=== PATIENT | male | born 1960 | race Two or more races ===

== ENCOUNTER 2023-03-01 13:56 | Emergency (ER) | payer MEDICAID, OTHER ==
[~2023-03-01] VITALS: Ht 180.3 cm; Wt 91.9 kg
[2023-03-01 14:10] VITALS: BP 125/90; PULSE 101; RESP 20; O2SAT 98
[2023-03-01] MEDS ORDERED: LORazepam 2MG/ML-1ML VIAL IV ONE (14:30)
[2023-03-01] MEDS ORDERED: SODIUM CHLORIDE 0.9% 1,000 ML IV ONE (14:30)
[2023-03-01 14:46] LABS: Basophils # (auto) 0.1 10 ^3/uL (0-0.2); Basophils % (auto) 1.1 % (0.0-2.0); Eosinophils # (auto) 0.3 10 ^3/uL (0-0.8); Hemoglobin 16.7 g/dL (13.5-17.5); Lymphocytes # (auto) 2.4 10 ^3/uL (0.4-5.4); Lymphocytes % (auto) 22.7 % (10.0-50.0); Mean Corpuscular Hemoglobin 31.6 pg (28.0-32.0); Mean Corpuscular Hgb Conc. 34.1 g/dL (32.0-36.0); Mean Corpuscular Volume 92.7 fL (80.0-100.0); Monocytes % (auto) 9.3 % (0.0-12.0); Neutrophils # (auto) 6.7 10 ^3/uL (1.6-8.6); Neutrophils % (auto) 63.9 % (37.0-80.0); Nucleated Red Blood Cells % 0.1 %; Red Blood Cells 5.29 10^6/uL (4.5-5.90); Red Cell Distribution Width 12.7 % (11.8-14.3); White Blood Cell 10.5 10^3/uL (4.4-10.8)
[2023-03-01 15:01] LABS: Alanine Aminotransferase 50 U/L (7-40); Albumin 4.1 g/dL (3.2-4.8); Alkaline Phosphatase 110 U/L (46-116); Anion Gap 8 (5-15); Aspartate Aminotransferase 40 U/L (13-40); BUN/Creatinine Ratio 13.1 (10.0-20.0); Bilirubin, Total 0.5 mg/dL (0.2-1.0); Blood Alcohol 4.7 mg/dL (<10); Blood Urea Nitrogen 13 mg/dL (9-23); Calcium 9.6 mg/dL (8.5-10.1); Carbon Dioxide 27 mmol/L (20-30); Chloride 103 mmol/L (98-107); Glucose 283 mg/dL (74-106); Potassium 4.2 mmol/L (3.5-5.1); Sodium 138 mmol/L (136-145); Total Protein 6.7 g/dL (5.7-8.2)
[2023-03-01 15:28] LABS: Amphetamine Screen, Urine Pos (NEGATIVE); Barbiturate Scree,Urine Neg (NEGATIVE); Benzodiazephine Screen, Urine Neg (NEGATIVE); Cannabinoid Screen, Urine Pos (NEGATIVE); Cocaine Screen, Urine Neg (NEGATIVE); Opiate Scree,Urine Neg (NEGATIVE); Phencyclidine Screen, Urine Neg (NEGATIVE)
[2023-03-01] MEDS ORDERED: diphenhdrAMINE HCL 50 MG/1 ML VL IV ONE (15:30)
[2023-03-02] MEDS ORDERED: BENA-36 PO (19:01)
[2023-03-02] MEDS ORDERED: ATOR20TA50 PO (19:01)
[2023-03-02] MEDS ORDERED: METF-869 PO (19:01)
[2023-03-02] MEDS ORDERED: NIFE1TAB30 PO (19:01)
== END 2023-03-01 22:46 | disposition home or self-care (01) ==
LOC: ER 13:56
DX: F15.10 Other stimulant abuse, uncomplicated (principal); R25.1 Tremor, unspecified; I10 Essential (primary) hypertension; E11.9 Type 2 diabetes mellitus without complications; J44.9 Chronic obstructive pulmonary disease, unspecified; F17.210 Nicotine dependence, cigarettes, uncomplicated; Z86.73 Personal history of transient ischemic attack (TIA), and cerebral infarction without residual deficits; Z98.890 Other specified postprocedural states; Z79.899 Other long term (current) drug therapy
CPT/HCPCS: 36415; 80053; 80307; 80320; 82962; 85025

== ENCOUNTER 2023-03-02 12:38 | Inpatient (IN) | payer MEDICAID ==
[~2023-03-02] VITALS: Ht 180.3 cm; Wt 93.6 kg
[2023-03-02] MEDS ORDERED: LORazepam 2MG/ML-1ML VIAL IV ONE (13:30)
[2023-03-02 14:17] LABS: Basophils # (auto) 0.1 10 ^3/uL (0-0.2); Basophils % (auto) 0.9 % (0.0-2.0); Eosinophils # (auto) 0.2 10 ^3/uL (0-0.8); Eosinophils % (auto) 1.7 % (0.0-7.0); Hemoglobin 16.5 g/dL (13.5-17.5); Lymphocytes # (auto) 2.5 10 ^3/uL (0.4-5.4); Lymphocytes % (auto) 20.9 % (10.0-50.0); Mean Corpuscular Hemoglobin 31.2 pg (28.0-32.0); Mean Corpuscular Hgb Conc. 33.6 g/dL (32.0-36.0); Mean Corpuscular Volume 92.9 fL (80.0-100.0); Monocytes # (auto) 1.2 10 ^3/uL (0-1.3); Monocytes % (auto) 9.7 % (0.0-12.0); Neutrophils # (auto) 8.1 10 ^3/uL (1.6-8.6); Neutrophils % (auto) 66.8 % (37.0-80.0); Nucleated Red Blood Cells % 0.1 %; Red Blood Cells 5.28 10^6/uL (4.5-5.90); Red Cell Distribution Width 12.9 % (11.8-14.3); White Blood Cell 12.2 10^3/uL (4.4-10.8)
[2023-03-02 14:24] LABS: Alanine Aminotransferase 50 U/L (7-40); Albumin 4.1 g/dL (3.2-4.8); Alkaline Phosphatase 94 U/L (46-116); Anion Gap 8 (5-15); Aspartate Aminotransferase 40 U/L (13-40); BUN/Creatinine Ratio 13.4 (10.0-20.0); Bilirubin, Total 0.9 mg/dL (0.2-1.0); Blood Urea Nitrogen 11 mg/dL (9-23); Calcium 9.8 mg/dL (8.5-10.1); Carbon Dioxide 25 mmol/L (20-30); Chloride 106 mmol/L (98-107); Sodium 139 mmol/L (136-145); Total Protein 6.8 g/dL (5.7-8.2)
[2023-03-02 14:32] VITALS: PULSE 91; RESP 15; O2SAT 92
[2023-03-02 14:32] LABS: Glucose 160 mg/dL (74-106)
[2023-03-02 15:19] LABS: INR 1.01 (0.9-1.15); Partial Thromboplastin Time 27.5 SEC (24.5-34.5); Prothrombin Time 10.6 sec (9.3-11.8)
[2023-03-02] MEDS ORDERED: ACETAMINOPHEN 325 MG TAB PO PRN (19:00)
[2023-03-02] MEDS ORDERED: cefTRIAXone 1GM/50ML D5W 50 ML IV ONE (19:00)
[2023-03-02] MEDS ORDERED: DEXTROSE (50%) 50ML SYRG IV PRN (19:00)
[2023-03-02] MEDS ORDERED: MORPHINE SULFATE INJ 2 MG/ml SYRG IV PRN (19:00)
[2023-03-02] MEDS ORDERED: DOCUSATE SOD 100 MG CAP PO PRN (19:00)
[2023-03-02] MEDS ORDERED: NITROGLYCERIN 0.4 MG SL TAB SL PRN (19:00)
[2023-03-02] MEDS ORDERED: ONDANSETRON HCL 4 MG/2 ML VIAL IV PRN (19:00)
[2023-03-02] MEDS ORDERED: ATOR20TA50 PO (19:01)
[2023-03-02] MEDS ORDERED: NIFE1TAB30 PO (19:01)
[2023-03-02] MEDS ORDERED: BENA-36 PO (19:01)
[2023-03-02] MEDS ORDERED: METF-869 PO (19:01)
[2023-03-02 20:06] LABS: Urine Bacteria NONE SEEN /hpf (None Seen); Urine Blood Negative /uL (Negative); Urine Clarity Clear (Clear); Urine Color Yellow (Yellow); Urine Mucus FEW (None Seen); Urine Protein, UAD TRACE (Negative); Urine WBC <1 /hpf (0 - 3)
[2023-03-02 20:08] VITALS: PULSE 98; RESP 18; O2SAT 98
[2023-03-02 20:09] LABS: Urine Specific Gravity > 1.050 (1.001-1.035)
[2023-03-02 20:22] LABS: Amphetamine Screen, Urine Pos (NEGATIVE); Barbiturate Scree,Urine Neg (NEGATIVE); Benzodiazephine Screen, Urine Neg (NEGATIVE); Cannabinoid Screen, Urine Neg (NEGATIVE); Cocaine Screen, Urine Neg (NEGATIVE); Opiate Scree,Urine Neg (NEGATIVE); Phencyclidine Screen, Urine Neg (NEGATIVE)
[2023-03-02] MEDS: InsuLIN REG 1unit/0.01ml Soln (100units/ml) SC SCH (22:05)
[2023-03-02] MEDS: ACCU-CHEK COMFORT CURVE STRIP VI SCH (22:07)
[2023-03-03] VITALS (7 sets, daily range): BP systolic 109–122; BP diastolic 72–95; PULSE 89–103; RESP 18–24; TEMP 97.6–98.1; O2SAT 93–98
[2023-03-03 06:17] LABS: Basophils # (auto) 0.1 10 ^3/uL (0-0.2); Eosinophils # (auto) 0.3 10 ^3/uL (0-0.8); Eosinophils % (auto) 2.9 % (0.0-7.0); Lymphocytes # (auto) 3.1 10 ^3/uL (0.4-5.4); Lymphocytes % (auto) 30.3 % (10.0-50.0); Mean Corpuscular Hemoglobin 31.8 pg (28.0-32.0); Neutrophils # (auto) 5.4 10 ^3/uL (1.6-8.6)
[2023-03-03 06:18] LABS: Basophils % (auto) 0.9 % (0.0-2.0); Hematocrit 54.1 % (41.0-53.0); Mean Corpuscular Hgb Conc. 33.2 g/dL (32.0-36.0); Mean Corpuscular Volume 95.8 fL (80.0-100.0); Monocytes # (auto) 1.3 10 ^3/uL (0-1.3); Monocytes % (auto) 12.7 % (0.0-12.0); Neutrophils % (auto) 53.2 % (37.0-80.0); Nucleated Red Blood Cells % 0.2 %; Red Blood Cells 5.65 10^6/uL (4.5-5.90); Red Cell Distribution Width 13.2 % (11.8-14.3); White Blood Cell 10.1 10^3/uL (4.4-10.8)
[2023-03-03 06:21] LABS: Alanine Aminotransferase 54 U/L (7-40); Alkaline Phosphatase 112 U/L (46-116); Anion Gap 11 (5-15); Blood Urea Nitrogen 10 mg/dL (9-23); Calcium 10.2 mg/dL (8.5-10.1); Carbon Dioxide 24 mmol/L (20-30); Chloride 104 mmol/L (98-107); Glucose 139 mg/dL (74-106); Sodium 139 mmol/L (136-145)
[2023-03-03 06:22] LABS: Albumin 4.5 g/dL (3.2-4.8); Aspartate Aminotransferase 40 U/L (13-40); Bilirubin, Total 0.9 mg/dL (0.2-1.0); Total Protein 7.4 g/dL (5.7-8.2)
[2023-03-03] MEDS: InsuLIN REG 1unit/0.01ml Soln (100units/ml) SC SCH ×4 (06:47→22:01)
[2023-03-03] MEDS: ACCU-CHEK COMFORT CURVE STRIP VI SCH ×4 (06:52→22:06)
[2023-03-03] MEDS: cefTRIAXone 1GM/50ML D5W 50 ML IV SCH (09:17)
[2023-03-03] MEDS: NIFEdipine ER 30 MG TAB PO SCH (10:37)
[2023-03-03] MEDS: ASPirin-EC 81 mg tab PO SCH (10:37)
[2023-03-03] MEDS: ENOXAPARIN SOD 40 MG/0.4 ML SYRINGE SC SCH (10:38)
[2023-03-03] MEDS: ATORVASTATIN 20 MG TAB PO SCH (10:38)
[2023-03-03] MEDS: BENAZEPRIL HCL 10 MG TAB PO SCH (10:38)
[2023-03-03] MEDS: LORazepam 2MG/ML-1ML VIAL IV PRN (12:25)
[2023-03-03] MEDS: chlordiazePOXIDE HCL 25 MG CAP PO SCH ×2 (16:02→21:49)
[2023-03-03] MEDS ORDERED: HALOPERIDOL LACTATE 5 MG/ML INJ VIAL IM ONE (16:30)
[2023-03-03] MEDS ORDERED: HALOPERIDOL LACTATE 5 MG/ML INJ VIAL IM PRN ×2 (16:45→20:30)
[2023-03-03] MEDS ORDERED: LORazepam 2MG/ML-1ML VIAL IV PRN (20:30)
[2023-03-03 21:05] LABS: LDL Cholesterol 66 mg/dL (< 100); Triglycerides 151 mg/dL (< 150)
[2023-03-03 21:07] LABS: Cholesterol 125 mg/dL (< 200); HDL Cholesterol 40 mg/dL (40-59)
[2023-03-03] MEDS: HALOPERIDOL 1 MG TAB PO SCH (21:49)
[2023-03-04] MEDS: chlordiazePOXIDE HCL 25 MG CAP PO SCH ×3 (04:53→21:06)
[2023-03-04] MEDS: ACCU-CHEK COMFORT CURVE STRIP VI SCH ×4 (06:35→21:13)
[2023-03-04] MEDS: InsuLIN REG 1unit/0.01ml Soln (100units/ml) SC SCH ×4 (06:38→21:17)
[2023-03-04] MEDS: ENOXAPARIN SOD 40 MG/0.4 ML SYRINGE SC SCH (09:56)
[2023-03-04] MEDS: ASPirin-EC 81 mg tab PO SCH (09:56)
[2023-03-04] MEDS: NIFEdipine ER 30 MG TAB PO SCH (09:57)
[2023-03-04] MEDS: ATORVASTATIN 20 MG TAB PO SCH (09:57)
[2023-03-04] MEDS: HALOPERIDOL 1 MG TAB PO SCH ×2 (09:57→21:06)
[2023-03-04] MEDS: BENAZEPRIL HCL 10 MG TAB PO SCH (09:58)
[2023-03-04] MEDS: cefTRIAXone 1GM/50ML D5W 50 ML IV SCH (10:04)
[2023-03-04] MEDS: FOLIC ACID 1 MG, MULTIPLE VITAMIN 10 ML, MAGNESIUM SULF SDV 50% 8 MEQ, THIAMINE INJ 100... INJ SCH ×5 (12:51)
[2023-03-04 20:00] VITALS: PULSE 85; RESP 16
[2023-03-04] MEDS: LORazepam 2MG/ML-1ML VIAL IV PRN (21:05)
[2023-03-05] VITALS (7 sets, daily range): BP systolic 102–122; BP diastolic 52–74; PULSE 77–90; RESP 17–97; TEMP 97.3–97.5; O2SAT 91–96
[2023-03-05] MEDS: ACCU-CHEK COMFORT CURVE STRIP VI SCH ×4 (06:24→22:17)
[2023-03-05] MEDS: InsuLIN REG 1unit/0.01ml Soln (100units/ml) SC SCH ×4 (06:37→22:19)
[2023-03-05] MEDS: ATORVASTATIN 20 MG TAB PO SCH (09:52)
[2023-03-05] MEDS: HALOPERIDOL 1 MG TAB PO SCH ×2 (09:52→22:14)
[2023-03-05] MEDS: ASPirin-EC 81 mg tab PO SCH (09:52)
[2023-03-05] MEDS: cefTRIAXone 1GM/50ML D5W 50 ML IV SCH (09:52)
[2023-03-05] MEDS: BENAZEPRIL HCL 10 MG TAB PO SCH (09:53)
[2023-03-05] MEDS: NIFEdipine ER 30 MG TAB PO SCH (09:53)
[2023-03-05] MEDS: ENOXAPARIN SOD 40 MG/0.4 ML SYRINGE SC SCH (09:54)
[2023-03-05] MEDS ORDERED: chlordiazePOXIDE HCL 25 MG CAP PO SCH (10:00)
[2023-03-05] MEDS: FOLIC ACID 1 MG, MULTIPLE VITAMIN 10 ML, MAGNESIUM SULF SDV 50% 8 MEQ, THIAMINE INJ 100... INJ SCH ×5 (15:18)
[2023-03-05] MEDS: LORazepam 2MG/ML-1ML VIAL IV PRN (15:18)
[2023-03-06] MEDS: LORazepam 2MG/ML-1ML VIAL IV PRN ×2 (00:48→07:20)
[2023-03-06 05:00] VITALS: BP 122/69; PULSE 79; RESP 18; TEMP 97.6; O2SAT 95
[2023-03-06] MEDS ORDERED: chlordiazePOXIDE HCL 25 MG CAP PO SCH ×2 (07:00→10:00)
[2023-03-06] MEDS: InsuLIN REG 1unit/0.01ml Soln (100units/ml) SC SCH (07:03)
[2023-03-06] MEDS: ACCU-CHEK COMFORT CURVE STRIP VI SCH (07:04)
[2023-03-06 08:00] VITALS: PULSE 87; PULSE 90; RESP 19; RESP 97; O2SAT 94
[2023-03-07] MEDS ORDERED: chlordiazePOXIDE HCL 25 MG CAP PO SCH (10:00)
[2023-03-08] MEDS ORDERED: chlordiazePOXIDE HCL 25 MG CAP PO SCH (07:00)
== END 2023-03-06 10:38 | disposition left against medical advice (07) | DRG 45 ==
LOC: ER 12:38 → TELE 18:59 → TELE-CENTR 03-03 07:52
PROVIDERS: ADMIT Nurse Practitioner Family; ATTEND Family Medicine
DX: I63.9 Cerebral infarction, unspecified (principal); G93.41 Metabolic encephalopathy; L03.114 Cellulitis of left upper limb; E11.9 Type 2 diabetes mellitus without complications; E78.5 Hyperlipidemia, unspecified; E78.00 Pure hypercholesterolemia, unspecified; F01.50 Vascular dementia, unspecified severity, without behavioral disturbance, psychotic disturbance, mood disturbance, and anxiety; I10 Essential (primary) hypertension; Z53.29 Procedure and treatment not carried out because of patient's decision for other reasons; F10.139 Alcohol abuse with withdrawal, unspecified; F17.200 Nicotine dependence, unspecified, uncomplicated; J43.9 Emphysema, unspecified; Z79.82 Long term (current) use of aspirin; Z79.899 Other long term (current) drug therapy; Z82.3 Family history of stroke; Z82.49 Family history of ischemic heart disease and other diseases of the circulatory system; Z71.6 Tobacco abuse counseling; Z71.41 Alcohol abuse counseling and surveillance of alcoholic
CPT/HCPCS: 36415; 70450; 70496; 70551; 71045; 76881; 80053; 80061; 80307; 80320; 81001; 82962; 83735; 83880; 84484; 85025; 85610; 85730; 87040; 93306; 93886; 97163; G0378; J0696; J1815

== ENCOUNTER 2024-11-03 21:29 | Emergency (ER) | payer MEDICAID ==
[~2024-11-03] VITALS: Ht 172.7 cm; Wt 82.0 kg
[~2024-11-03 21:29] MED LIST: ATOR20TA50 PO; BENA-36 PO; METF-869 PO; NIFE1TAB30 PO
[2024-11-03 21:40] VITALS: BP 119/86; RESP 16; TEMP 98; O2SAT 99
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
[2024-11-03 22:09] VITALS: PULSE 125
[2024-11-03 23:13] LABS: Alanine Aminotransferase 23 U/L (7-40); Albumin 4.7 g/dL (3.2-4.8); Alkaline Phosphatase 77 U/L (46-116); Anion Gap 12 (5-15); BUN/Creatinine Ratio 13.0 (10.0-20.0); Blood Urea Nitrogen 12 mg/dL (9-23); Carbon Dioxide 21 mmol/L (20-31); Potassium 4.2 mmol/L (3.5-5.1); Sodium 144 mmol/L (136-145); Total Protein 7.5 g/dL (5.7-8.2)
[2024-11-03 23:14] LABS: Bilirubin, Total 0.5 mg/dL (0.2-1.0); Chloride 111 mmol/L (98-107); Glucose 126 mg/dL (74-106)
[2024-11-03 23:18] LABS: Hematocrit 55.7 % (41.0-53.0); Hemoglobin 19.2 g/dL (13.5-17.5); Mean Corpuscular Hemoglobin 33.0 pg (28.0-32.0); Mean Corpuscular Volume 95.9 fL (80.0-100.0); Nucleated Red Blood Cells % 0.1 %
[2024-11-03 23:39] LABS: Calcium 10.1 mg/dL (8.7-10.4)
--- NOTE | 2024-11-08 12:43 | ECG ---
[facility] Test Date: 2024-11-03 Test Time: 22:09:00 Pat Name: JANIE BOLANOS Department: ER Room: Gender: M Fuel Quality Tech: : 1960 Requested By: LISSET KUMAR Order Number: [id number] Reading MD: Julio C Boyd Measurements Intervals [place] Rate: 125 P: 86 MI: 117 QRS: 84 QRSD: 83 T: -43 QT: 302 QTc: 436 Interpretive Statements Sinus tachycardia Nonspecific repol abnormality, diffuse leads Electronically Signed On 11-13-2024 17:10:19 PDT by Julio C Boyd Please click the below link to view image of tracing.
== END 2024-11-04 01:50 | disposition left against medical advice (07) ==
LOC: EDBD 21:29 → ER 21:29
DX: S40.812A Abrasion of left upper arm, initial encounter (principal); S40.811A Abrasion of right upper arm, initial encounter; S40.212A Abrasion of left shoulder, initial encounter; S40.211A Abrasion of right shoulder, initial encounter; G93.40 Encephalopathy, unspecified; I10 Essential (primary) hypertension; E11.9 Type 2 diabetes mellitus without complications; E78.5 Hyperlipidemia, unspecified; F03.90 Unspecified dementia, unspecified severity, without behavioral disturbance, psychotic disturbance, mood disturbance, and anxiety; F17.210 Nicotine dependence, cigarettes, uncomplicated; J44.9 Chronic obstructive pulmonary disease, unspecified; Z79.899 Other long term (current) drug therapy; Z86.73 Personal history of transient ischemic attack (TIA), and cerebral infarction without residual deficits; Z98.890 Other specified postprocedural states; V89.2XXA Person injured in unspecified motor-vehicle accident, traffic, initial encounter; Y93.55 Activity, bike riding; Y92.488 Other paved roadways as the place of occurrence of the external cause; Y99.8 Other external cause status
CPT/HCPCS: 36415; 80053; 80320; 82947; 82962; 83880; 84484; 85025; 93005

== ENCOUNTER 2024-11-16 18:59 | Inpatient (IN) | payer MEDICAID ==
[~2024-11-16] VITALS: Ht 175.3 cm; Wt 93.8 kg
--- NOTE | 2024-11-16 19:33 | ED.PDOC ---
Altered Mental Status HPI Comments 64-year-old male who came to ER via EMS for altered level of consciousness. Patient is a very poor historian. Unable to understand with the he is saying, constantly mumbling. Was here 2 weeks ago, and records revealed he has a history of CVA, HTN, Hyperlipidemia, organic brain syndrome, Dementia, DM, and Methamphetamine/Tobacco/Alcohol Abuse. Patient does smell of alcohol at this time. No further information could be taken from him at this time of care REVIEW OF SYSTEMS: (+) Patient ALOC No fever, no chills, or fatigue HEENT: No sore throat, no earache, no congestion, no neck pain. Cardiac: No chest pain. No palpitations. Lungs: No shortness of breath, no cough. GI: No nausea, no vomiting, no diarrhea, no constipation, no abdominal pain : No dysuria, frequency, or urgency. No hematuria. Musculoskeletal: No joint pain , no joint swelling, no extremity edema. Skin: No rash, no itching. Neuro: No headache, no dizziness, no weakness Physical exam General: Awake, alert and oriented. No acute distress. Skin: Skin in warm, dry and intact. Appropriate color for ethnicity. Nailbeds pink with no cyanosis. HEENT: The head is normocephalic and atraumatic. Conjunctivae are clear without exudates or hemorrhage. Sclera is non-icteric. EOM are intact. No signs of nystagmus. Eyelids are normal in appearance without swelling or lesions. Oral mucosa is pink and moist Neck: The neck is supple with normal range of motion. No JVD. Cardiac: Heart rate and rhythm are normal. No murmurs, gallops, or rubs are auscultated. Respiratory: No signs of respiratory distress. Lung sounds are clear in all lobes bilaterally without rales, rhonchi, or wheezes. Abdominal: Abdomen is soft, non-tender without distention. Bowel sounds are present and normoactive in all four quadrants. Extremities: Upper and lower extremities are atraumatic in appearance without deformity or edema. Neurological: The patient is awake, alert and oriented to person, place, and time with normal speech. Speech is clear. There is no facial asymmetry. No upper or lower extremity drift. Psychiatric: Appropriate mood and affect. Good judgement and insight. No visual or auditory hallucinations. Chief Complaint: ALOC Time Seen by MD: 19:31 Primary Care Provider: Unknown Reviewed Notes: Robotic Maintenance Technician Notes Allergies: Coded Allergies: NO KNOWN ALLERGIES (Unverified , 09/19/10) Home Meds Reported Medications Metformin Hydrochloride (Metformin Hydrochloride) 500 Mg Tab, 1 TAB PO BID 03/02/23 Atorvastatin Calcium (ATORVASTATIN CALCIUM) 20 Mg Tab, 1 TAB PO DAILY 03/02/23 Benazepril Hcl (Benazepril Hcl) 20 Mg Tab, 1 TAB PO DAILY 03/02/23 Nifedipine (Nifedipine Er) 60 Mg Tab, 1 TAB PO DAILY 03/02/23 Information Source: Patient, Emergency Med Personnel Mode of Arrival: EMS Severity: Unable to Care for Self Past Medical History PAST MEDICAL HISTORY: COPD, CVA, Dementia, DM, HTN Past Medical History (Other): Organic brain syndrome Surgical History: Pt Confused Family History Family History: Pt Confused Social History Smoker: Pt Confused Alcohol: Heavy Drugs: Methamphetamine Lives In: Pt Confused EKG EKG : Pulse Rate (adult): 100 Cardiac Rhythm: ST Was a procedure done? Was a procedure done?: No Differential Diagnosis (ALOC) Differential Diagnosis: Dehydration, Hypoglycemia, Encephalopathy, Sepsis, Drug Overdose, ETOH Intoxication X-Ray, Labs, Meds, VS Vital Signs Date Time Temp Pulse Resp B/P (MAP) Pulse Ox O2 Delivery O2 Flow Rate FiO2 11/17/24 00:00 85 11/17/24 00:00 81 20 102/73 (83) 96 11/16/24 22:00 81 24 116/75 (89) 95 11/16/24 20:00 91 11/16/24 20:00 91 13 116/84 (95) 95 11/16/24 19:33 100 11/16/24 19:25 Room Air* 0 21 11/16/24 19:24 97.7 99 18 120/89 (99) 94 97.7 11/16/24 19:08 97.8 92 16 133/92 97 97.8 11/16/24 19:08 100 Lab Test 11/16/24 19:45 11/16/24 19:00 Range/Units White Blood Count 8.8 4.4-10.8 10^3/uL Red Blood Count 5.37 4.5-5.90 10^6/uL Hemoglobin 17.8 H 13.5-17.5 g/dL Hematocrit 51.5 41.0-53.0 % Mean Corpuscular Volume 96.0 80.0-100.0 fL Mean Corpuscular Hemoglobin 33.1 H 28.0-32.0 pg Mean Corpuscular Hemoglobin Concent 34.5 32.0-36.0 g/dL Red Cell Distribution Width 14.2 11.8-14.3 % Platelet Count 254 140-450 10^3/uL Mean Platelet Volume 7.5 6.9-10.8 fL Neutrophils (%) (Auto) 57.5 37.0-80.0 % Lymphocytes (%) (Auto) 28.7 10.0-50.0 % Monocytes (%) (Auto) 10.4 0.0-12.0 % Eosinophils (%) (Auto) 2.8 0.0-7.0 % Basophils (%) (Auto) 0.6 0.0-2.0 % Neutrophils # (Auto) 5.0 1.6-8.6 10 ^3/uL Lymphocytes # (Auto) 2.5 0.4-5.4 10 ^3/uL Monocytes # (Auto) 0.9 0-1.3 10 ^3/uL Eosinophils # (Auto) 0.2 0-0.8 10 ^3/uL Basophils # (Auto) 0.1 0-0.2 10 ^3/uL Nucleated Red Blood Cells 0.2 % Sodium Level 141 136-145 mmol/L Potassium Level 4.2 3.5-5.1 mmol/L Chloride Level 108 H 98-107 mmol/L Carbon Dioxide Level 22 20-31 mmol/L Anion Gap 11 5-15 Blood Urea Nitrogen 10 9-23 mg/dL Creatinine 0.85 0.700-1.30 mg/dL Glomerular Filtration Rate Calc 98 >90 mL/min BUN/Creatinine Ratio 11.8 10.0-20.0 Serum Glucose 108 H 74-106 mg/dL Calcium Level 9.0 8.7-10.4 mg/dL Total Bilirubin 0.6 0.2-1.0 mg/dL Aspartate Amino Transferase (AST) 27 13-40 U/L Alanine Aminotransferase (ALT) 23 7-40 U/L Alkaline Phosphatase 75 46-116 U/L Troponin I High Sensitivity < 3 L </=54 ng/L Total Protein 6.7 5.7-8.2 g/dL Albumin 4.2 3.2-4.8 g/dL Plasma/Serum Blood Alcohol < 3.0 <10 mg/dL Urine Color Yellow Yellow Urine Clarity Clear Clear Urine pH 5.0 5.0-9.0 Urine Specific Brooks 1.043 H 1.001-1.035 Urine Protein Negative Negative Urine Ketones Trace Negative Urine Blood Negative Negative /uL Urine Nitrite Negative Negative Urine Bilirubin Negative Negative Urine Urobilinogen Normal Negative mg/dL Urine Leukocyte Esterase Negative Negative /uL Urine RBC 1 0 - 3 /hpf Urine Microscopic WBC < 1 0-3 /HPF Urine Squamous Epithelial Cells Few <5 /hpf Urine Bacteria None seen None Seen /hpf Urine Mucus Few None Seen Urine Glucose 4+ H Normal mg/dL Urine Opiates Screen Neg NEGATIVE Urine Fentanyl Screen Neg NEGATIVE Urine Barbiturates Screen Neg NEGATIVE Urine Phencyclidine Screen Neg NEGATIVE Urine Amphetamines Screen Neg NEGATIVE Urine Benzodiazepines Screen Neg NEGATIVE Urine Cocaine Screen Pos NEGATIVE Urine Cannabinoids Screen Neg NEGATIVE Current Medications Medications (Trade) Dose Ordered Sig/Markel Route Start Time Stop Time Status Last Admin Sodium Chloride 1,000 ml @ 1,000 mls/hr Q1H ONCE IV 11/16/24 19:30 11/16/24 20:29 DC 11/16/24 19:36 EXAM: CT HEAD WITHOUT CONTRAST INDICATION: Altered mental status TECHNIQUE: CT of the head without intravenous contrast. Radiation Dose Information: CT Dose: CTDI volume is 61.53 mGy. Dose-length product is 1212.49 mGy*cm The dose indicators for CT are the volume Computed Tomography (CT) Dose Index (CTDIvol) and the Dose Length Product (DLP), and are measured in units of mGy an d mGy-cm, respectively. These indicators are not patient dose, but values generated from the CT scanner acquisition factors. The report includes radiation exposure data for exposures received during this examination. COMPARISON: MRI BRAIN HEAD WO CONTRAST on DOS: 03/04/23, CT STROKE CTH on DOS: 03/02/23, CT ANGIO HEAD/NECK on DOS: 03/02/23 FINDINGS: There is no evidence of acute intracranial hemorrhage, extra-axial collection, mass effect, midline shift, herniation or hydrocephalus. Acute infarct in the right thalamus posterior limb of the internal capsule. The ventricles, sulci and cisterns are age appropriate. The eid-white differentiation is intact. Patchy periventricular and subcortical white matter hypoattenuation is nonspecific but may be related to small vessel ischemic disease. The visualized paranasal sinuses and mastoid air cells are clear. The surrounding soft tissues and osseous structures are unremarkable. IMPRESSION: 1. Per MRI of 03/04/2023 possible infarct right posterior limb of the internal capsule in the thalamus. 2. No acute intracranial hemorrhage. HS:Y Time of 1ST Reevaluation: 19:33 Reevaluation 1ST: Unchanged Patient Education/Counseling: Need For Follow Up Family Education/Counseling: No Family Present SEPSIS Sepsis Screen Date sepsis recognized/suspect: Nov 16, 2024 Time Sepsis recognized/suspect: 1911 Recent Procedure: No On Antibiotic Therapy: No Respiratory Rate >20: No Heart Rate >90: Yes Temp<36 C (96.8 F) or >38.3 C: No SBP <90 or MAP <65 mmHG: No New Acute Mental Status Change: No Is the patient on CPAP, BIPAP,: No Physician Orders Straight Cath. (11/16/24 ) Head Without Contrast (11/16/24 21:49) Stroke Assessment (11/16/24 23:46) Vital Signs .PER UNIT PROTOCOL (11/16/24 23:46) Public Policy Mediator (11/16/24 23:46) Accurate Weight In Kg (11/16/24 23:46) Accucheck (11/16/24 23:46) * Neurology Consult (11/16/24 23:46) Nursing Dysphagia Screen (11/16/24 23:46) Neuro Checks Per Unit Protocol (11/16/24 23:46) Vital Signs Date Time Temp Pulse Resp B/P (MAP) Pulse Ox O2 Delivery O2 Flow Rate FiO2 11/17/24 00:00 85 11/17/24 00:00 81 20 102/73 (83) 96 11/16/24 22:00 81 24 116/75 (89) 95 11/16/24 20:00 91 11/16/24 20:00 91 13 116/84 (95) 95 11/16/24 19:33 100 11/16/24 19:25 Room Air* 0 21 11/16/24 19:24 97.7 99 18 120/89 (99) 94 97.7 11/16/24 19:08 97.8 92 16 133/92 97 97.8 11/16/24 19:08 100 Laboratory Tests Test 11/16/24 19:45 White Blood Count 8.8 10^3/uL (4.4-10.8) Medications Medications Dose Ordered Sig/Markel Route Start Time Stop Time Status Last Admin Dose Admin Sodium Chloride 1,000 ml @ 1,000 mls/hr Q1H ONCE IV 11/16/24 19:30 11/16/24 20:29 DC 11/16/24 19:36 Departure 1 Departure Time of Disposition: 23:46 Impression: Primary Impression: CVA (cerebral vascular accident) Disposition: ADMITTED INPATIENT Condition: Stable Comments [age] male who presented to the emergency department with altered mental status CT head showed acute thalamic infarct Patient admitted to hospitalist service for further treatment, evaluation and monitoring. Critical Care Note Critical Care Time?: No Stability Stability form required: No Heart Score Heart Score: Heart Score Response (Comments) Value History N/A 0 EKG N/A 0 Age N/A 0 Risk Factors N/A 0 Troponin N/A 0 Total 0 I personally scribed for SHAWNEE DUFFY MD ([email or web address]) on 11/16/24 at 19:33. Electronically submitted by Jhony Guerrero ([email or web address]). I personally scribed for SHAWNEE DUFFY MD ([email or web address]) on 11/16/24 at 22:54. Electronically submitted by Jhony Guerrero ([employer]). SHAWNEE DUFFY MD Nov 16, 2024 19:33
[2024-11-16] MEDS: SODIUM CHLORIDE 0.9% 1,000 ML IV ONE (19:36)
--- NOTE | 2024-11-16 20:09 | ECG ---
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
[2024-11-16 20:11] LABS: Hematocrit 51.5 % (41.0-53.0); Hemoglobin 17.8 g/dL (13.5-17.5); Mean Corpuscular Hemoglobin 33.1 pg (28.0-32.0); Mean Corpuscular Volume 96.0 fL (80.0-100.0); Nucleated Red Blood Cells % 0.2 %
[2024-11-16 20:20] LABS: Alanine Aminotransferase 23 U/L (7-40); Albumin 4.2 g/dL (3.2-4.8); Alkaline Phosphatase 75 U/L (46-116); Anion Gap 11 (5-15); BUN/Creatinine Ratio 11.8 (10.0-20.0); Bilirubin, Total 0.6 mg/dL (0.2-1.0); Blood Urea Nitrogen 10 mg/dL (9-23); Calcium 9.0 mg/dL (8.7-10.4); Carbon Dioxide 22 mmol/L (20-31); Chloride 108 mmol/L (98-107); Glucose 108 mg/dL (74-106); Potassium 4.2 mmol/L (3.5-5.1); Sodium 141 mmol/L (136-145); Total Protein 6.7 g/dL (5.7-8.2)
[2024-11-16 20:52] LABS: Amphetamine Screen, Urine Neg (NEGATIVE)
[2024-11-16 21:19] LABS: Barbiturate Scree,Urine Neg (NEGATIVE); Benzodiazephine Screen, Urine Neg (NEGATIVE); Cannabinoid Screen, Urine Neg (NEGATIVE); Cocaine Screen, Urine Pos (NEGATIVE); Opiate Scree,Urine Neg (NEGATIVE); Phencyclidine Screen, Urine Neg (NEGATIVE)
[2024-11-16 21:21] LABS: Urine Protein, UAD Negative (Negative)
--- NOTE | 2024-11-16 22:32 | DVH ---
EXAM: CT HEAD WITHOUT CONTRAST INDICATION: Altered mental status TECHNIQUE: CT of the head without intravenous contrast. Radiation Dose Information: CT Dose: CTDI volume is 61.53 mGy. Dose-length product is 1212.49 mGy*cm The dose indicators for CT are the volume Computed Tomography (CT) Dose Index (CTDIvol) and the Dose Length Product (DLP), and are measured in units of mGy and mGy-cm, respectively. These indicators are not patient dose, but values generated from the CT scanner acquisition factors. The report includes radiation exposure data for exposures received during this examination. COMPARISON: MRI BRAIN HEAD WO CONTRAST on DOS: 03/04/23, CT STROKE CTH on DOS: 03/02/23, CT ANGIO HEA D/NECK on DOS: 03/02/23 FINDINGS: There is no evidence of acute intracranial hemorrhage, extra-axial collection, mass effect, midline s hift, herniation or hydrocephalus. Acute infarct in the right thalamus posterior limb of the internal capsule. The ventricles, sulci and cisterns are age appropriate. The eid-white differentiation is intact. Patchy periventricular and subcortical white matter hypoattenuation is nonspecific but may be related to small vessel ischemic disease. The visualized paranasal sinuses and mastoid air cells are clear. The surrounding soft tissues and osseous structures are unremarkable. IMPRESSION: 1. Per MRI of 03/04/2023 possible infarct right posterior limb of the internal capsule in the thalamu s. 2. No acute intracranial hemorrhage. HS:Y
[2024-11-17] VITALS (11 sets, daily range): BP systolic 105–129; BP diastolic 52–99; PULSE 61–72; RESP 12–22; TEMP 97.6–98.1; O2SAT 94–98
[2024-11-17] MEDS: ACCU-CHEK COMFORT CURVE STRIP VI ONE (02:00)
--- NOTE | 2024-11-17 02:22 | DVHHPRES ---
History of Present Illness Resident Creating Document: ELTON LI RESIDENT History of Present Illness Goldy Parkinson JR is a 64-year-old male with past medical history of hypertension, hyperlipidemia, dementia, DM type 2, multiple drug abuse and, history of CVA in 2022. The patient was brought to the ER via EMS due to history of 1 day of altered level of consciousness. The patient has history of multiple "strokes" that left Cognitive sequels. Today, family member noticed him more confused than his baseline and decided to call the ambulance. The patient is a very poor historian, with partial slow responses when questioned. The patient reports headache, generalized weakness and myalgias. Denies fever, chills, abdominal pain, chest pain, or other symptoms. The patient was in COUNTS INCLUDE 234 BEDS AT THE [facility] 2 weeks ago due to similar presentation. On initial evaluation UDS is positive for cocaine, head CT scan showed; No acute intracranial hemorrhage. The patient will be admitted for further management. 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 ) Past Surgical History: None Past Surgical History Patient confused. Family History Patient confused. Smoke: <1 pack per day Occupation: Patient confused. ALCOHOL: occassional Drugs: Cocaine, Marijuana, Other (Methamphetamines.) Lives: with Family Review of Systems Constitutional: No: Fever, Chills, Sweats, Weakness, Malaise, Other Eyes: No: Pain, Vision change, Conjunctivae inflammation, Eyelid inflammation, Other, Redness ENT: No: Ear pain, Ear discharge, Nose pain, Nose discharge, Nose congestion, Mouth pain, Mouth swelling, Throat pain, Throat swelling, Other Respiratory: No: Cough, Dry, Shortness of breath, SOB with excertion, Wheezing, Hemoptysis, Pleuritic Pain, Sputum, Wheezing, Other Cardiovascular: No: Chest Pain, Palpitations, Orthopnea, Paroxysmal Noc. Dyspnea, Edema, Lt Headedness, Other Gastrointestinal: No: Nausea, Vomiting, Abdominal Pain, Diarrhea, Constipation, Melena, Hematochezia, Other Genitourinary: No Dysuria, No Frequency, No Incontinence, No Hematuria, No Retention, No Other Musculoskeletal: No: other, neck pain, shoulder pain, arm pain, back pain, hand pain, leg pain, foot pain Skin: No: Rash, Lesions, Jaundice, Bruising, Other Neurological: Confusion, Other (Headaches. ); No: Weakness, Numbness, Incoordination, Change in speech, Seizures Allergies: Coded Allergies: NO KNOWN ALLERGIES (Unverified , 09/19/10) Medications Current Medications Medications Dose Ordered Sig/Markel Route Start Time Stop Time Status Last Admin Dose Admin Pantoprazole Sodium 40 mg DAILY PO 11/17/24 10:00 UNV Exam Vital Signs Vital Signs Date Time Temp Pulse Resp B/P (MAP) Pulse Ox O2 Delivery O2 Flow Rate FiO2 11/17/24 02:00 78 19 103/65 (78) 94 11/16/24 19:25 Room Air* 0 21 11/16/24 19:24 97.7 97.7 General Appearance: Alert, Cooperative HEENT: Atraumatic, PERRLA, Mucous membr. moist/pink Respiratory: Clear to auscultation, Normal air movement Cardiovascular: Regular rate, Normal S1, Normal S2, No murmurs Abdominal: Normal bowel sounds, Soft, No tenderness, No hepatospenomegaly Extremities: No clubbing, No cyanosis, No edema, Normal pulses, No tenderness/swelling Skin: No rashes, No breakdown, No significant lesion Neuro: Normal gait, Normal speech, Strength at 5/5 X4 ext, Normal tone, Sensation intact, Cranial nerves 3-12 NL, Reflexes 2+ Psych/Mental Status: Other (Confused in place and time. ) Labs/Xrays Labs Test 11/16/24 19:45 11/16/24 19:00 Range/Units White Blood Count 8.8 4.4-10.8 10^3/uL Red Blood Count 5.37 4.5-5.90 10^6/uL Hemoglobin 17.8 H 13.5-17.5 g/dL Hematocrit 51.5 41.0-53.0 % Mean Corpuscular Volume 96.0 80.0-100.0 fL Mean Corpuscular Hemoglobin 33.1 H 28.0-32.0 pg Mean Corpuscular Hemoglobin Concent 34.5 32.0-36.0 g/dL Red Cell Distribution Width 14.2 11.8-14.3 % Platelet Count 254 140-450 10^3/uL Mean Platelet Volume 7.5 6.9-10.8 fL Neutrophils (%) (Auto) 57.5 37.0-80.0 % Lymphocytes (%) (Auto) 28.7 10.0-50.0 % Monocytes (%) (Auto) 10.4 0.0-12.0 % Eosinophils (%) (Auto) 2.8 0.0-7.0 % Basophils (%) (Auto) 0.6 0.0-2.0 % Neutrophils # (Auto) 5.0 1.6-8.6 10 ^3/uL Lymphocytes # (Auto) 2.5 0.4-5.4 10 ^3/uL Monocytes # (Auto) 0.9 0-1.3 10 ^3/uL Eosinophils # (Auto) 0.2 0-0.8 10 ^3/uL Basophils # (Auto) 0.1 0-0.2 10 ^3/uL Nucleated Red Blood Cells 0.2 % Sodium Level 141 136-145 mmol/L Potassium Level 4.2 3.5-5.1 mmol/L Chloride Level 108 H 98-107 mmol/L Carbon Dioxide Level 22 20-31 mmol/L Anion Gap 11 5-15 Blood Urea Nitrogen 10 9-23 mg/dL Creatinine 0.85 0.700-1.30 mg/dL Glomerular Filtration Rate Calc 98 >90 mL/min BUN/Creatinine Ratio 11.8 10.0-20.0 Serum Glucose 108 H 74-106 mg/dL Calcium Level 9.0 8.7-10.4 mg/dL Total Bilirubin 0.6 0.2-1.0 mg/dL Aspartate Amino Transferase (AST) 27 13-40 U/L Alanine Aminotransferase (ALT) 23 7-40 U/L Alkaline Phosphatase 75 46-116 U/L Troponin I High Sensitivity < 3 L </=54 ng/L Total Protein 6.7 5.7-8.2 g/dL Albumin 4.2 3.2-4.8 g/dL Plasma/Serum Blood Alcohol < 3.0 <10 mg/dL Urine Color Yellow Yellow Urine Clarity Clear Clear Urine pH 5.0 5.0-9.0 Urine Specific [place] 1.043 H 1.001-1.035 Urine Protein Negative Negative Urine Ketones Trace Negative Urine Blood Negative Negative /uL Urine Nitrite Negative Negative Urine Bilirubin Negative Negative Urine Urobilinogen Normal Negative mg/dL Urine Leukocyte Esterase Negative Negative /uL Urine RBC 1 0 - 3 /hpf Urine Microscopic WBC < 1 0-3 /HPF Urine Squamous Epithelial Cells Few <5 /hpf Urine Bacteria None seen None Seen /hpf Urine Mucus Few None Seen Urine Glucose 4+ H Normal mg/dL Urine Opiates Screen Neg NEGATIVE Urine Fentanyl Screen Neg NEGATIVE Urine Barbiturates Screen Neg NEGATIVE Urine Phencyclidine Screen Neg NEGATIVE Urine Amphetamines Screen Neg NEGATIVE Urine Benzodiazepines Screen Neg NEGATIVE Urine Cocaine Screen Pos NEGATIVE Urine Cannabinoids Screen Neg NEGATIVE SEPSIS Sepsis Screen Date sepsis recognized/suspect: Nov 17, 2024 Time Sepsis recognized/suspect: 0019 Recent Procedure: No On Antibiotic Therapy: No Respiratory Rate >20: No Heart Rate >90: No Temp<36 C (96.8 F) or >38.3 C: No SBP <90 or MAP <65 mmHG: No New Acute Mental Status Change: No Is the patient on CPAP, BIPAP,: No Physician Orders Straight Cath. (11/16/24 ) Head Without Contrast (11/16/24 21:49) Stroke Assessment (11/16/24 23:46) Vital Signs .PER UNIT PROTOCOL (11/16/24 23:46) Second Language Tutor (11/16/24 23:46) Accurate Weight In Kg (11/16/24 23:46) Accucheck (11/16/24 23:46) * Neurology Consult (11/16/24 23:46) Nursing Dysphagia Screen (11/16/24 23:46) Neuro Checks Per Unit Protocol (11/16/24 23:46) Admit (11/17/24 01:56) Code Status (11/17/24 01:56) Review Orders With Adm.Md (11/17/24 01:56) Bedside Commode (11/17/24 01:56) Notify Md Of Changes From Base (11/17/24 01:56) Advance Directive (11/17/24 01:56) Basic Metabolic Panel (11/17/24 04:00) Complete Blood Count (11/17/24 04:00) Patient Condition (11/17/24 01:56) Allergies (11/17/24 01:56) Drug Screen (11/17/24 01:56) Power Regulator For 24 Hours (11/17/24 01:56) Notify Md Of Changes From Base (11/17/24 01:56) Pantoprazole Tablet (Protonix Tablet) (11/17/24 10:00) Ammonia (11/17/24 01:56) Sodium Chloride 0.9% (11/17/24 02:00) Glucose Blood (Accu-Chek Comfort Curve T (11/17/24 02:00) Insulin R (Human) (Insulin R) (11/17/24 02:00) Dextrose 50% Syringe (11/17/24 02:00) Vital Signs Date Time Temp Pulse Resp B/P (MAP) Pulse Ox O2 Delivery O2 Flow Rate FiO2 11/17/24 02:00 78 19 103/65 (78) 94 11/17/24 00:00 85 11/17/24 00:00 81 20 102/73 (83) 96 11/16/24 22:00 81 24 116/75 (89) 95 11/16/24 20:00 91 11/16/24 20:00 91 13 116/84 (95) 95 11/16/24 19:33 100 11/16/24 19:25 Room Air* 0 21 11/16/24 19:24 97.7 99 18 120/89 (99) 94 97.7 11/16/24 19:08 97.8 92 16 133/92 97 97.8 11/16/24 19:08 100 Laboratory Tests Test 11/16/24 19:45 White Blood Count 8.8 10^3/uL (4.4-10.8) Medications Medications Dose Ordered Sig/Markel Route Start Time Stop Time Status Last Admin Dose Admin Sodium Chloride 1,000 ml @ 1,000 mls/hr Q1H ONCE IV 11/16/24 19:30 11/16/24 20:29 DC 11/16/24 19:36 1,000 MLS/HR Assessment/Plan Assessment/Plan #Toxic encephalopathy #Rule out CVA #Hx previous lacunar stroke IV fluids NS Head CT scan non contrast UDS UA Ammonia levels #Essential Hypertension Benazepril 20 mg po daily Nifedipine 60 mg po daily #Diabetes Mellitus type 2 with hyperglycemia Hb A1c Insulin Sliding scale #Hyperlipidemia Atorvastatin 40 mg po daily #Dementia, R/O vascular dementia Neurology consult Diabetic diet DVT prophylaxis- ambulating. PUD prophylaxis Protonic. Goals of care discussed with the patient > 35 min. Discussed plan of care with Dr. Villegas Code status: Full code PCP:patient does not recall name. Plan discussed with: Patient, the patient agrees with the admission plan. Plan discussed with: Patient My Orders Orders - ELTON LI Procedure Category Date Status Time Admit ADMIT 11/17/24 Transmitted 01:56 Code Status CODE 11/17/24 Transmitted 01:56 Review Orders With [facility] 11/17/24 In Process Adm. 01:56 Bedside Commode [facility] 11/17/24 In Process 01:56 Notify Md Of Changes [facility] 11/17/24 In Process From Base 01:56 Advance Directive [facility] 11/17/24 In Process 01:56 Basic Metabolic Panel LAB 11/17/24 Logged 04:00 Complete Blood Count LAB 11/17/24 Logged 04:00 Patient Condition ORDERS 11/17/24 Transmitted 01:56 Allergies [facility] 11/17/24 In Process 01:56 Drug Screen LAB 11/17/24 Logged 01:56 Power Regulator For [facility] 11/17/24 In Process 24 Hours 01:56 Notify Md Of Changes [facility] 11/17/24 In Process From Base 01:56 Pantoprazole Tablet PHA 11/17/24 Logged (Protonix Tablet) 10:00 Ammonia LAB 11/17/24 Logged 01:56 Sodium Chloride 0.9% PHA 11/17/24 Logged 02:00 Glucose Blood PHA 11/17/24 Logged (Accu-Chek Comfort 02:00 Insulin R (Human) PHA 11/17/24 Logged (Insulin R) 02:00 Dextrose 50% Syringe PHA 11/17/24 Logged 02:00 Date of Service: Nov 17, 2024 Billing Provider: ELTON LI Common Visit Codes: [id number] INP/OBS CARE (HIGH) Secondary Visit Codes: [id number] CARE PLAN 30 MINUTES ELTON LI Nov 17, 2024 02:22
[2024-11-17] MEDS: InsuLIN REG 1unit/0.01ml Soln (100units/ml) SC ONE (02:33)
[2024-11-17] MEDS: DEXTROSE (50%) 50ML SYRG IV ONE (02:35)
[2024-11-17] MEDS: SODIUM CHLORIDE 0.9% 1,000 ML IV ONE (02:38)
[2024-11-17 04:51] LABS: Hematocrit 48.4 % (41.0-53.0); Hemoglobin 16.8 g/dL (13.5-17.5); Mean Corpuscular Hemoglobin 33.6 pg (28.0-32.0); Mean Corpuscular Volume 97.0 fL (80.0-100.0); Nucleated Red Blood Cells % 0.0 %
[2024-11-17 04:54] LABS: Potassium 3.7 mmol/L (3.5-5.1); Sodium 141 mmol/L (136-145)
[2024-11-17 04:55] LABS: Anion Gap 9 (5-15); Carbon Dioxide 23 mmol/L (20-31)
[2024-11-17 05:00] LABS: BUN/Creatinine Ratio 16.9 (10.0-20.0); Blood Urea Nitrogen 13 mg/dL (9-23); Glucose 91 mg/dL (74-106)
[2024-11-17 05:08] LABS: Chloride 109 mmol/L (98-107)
[2024-11-17 05:09] LABS: Calcium 8.5 mg/dL (8.7-10.4)
--- NOTE | 2024-11-17 09:28 | DVH ---
EXAM: XY CHEST XRAY 1 VIEW Indication: pain; r/o congestion Technique: Single frontal view of the chest was obtained Comparison: XY CHEST XRAY 1 VIEW on DOS: 03/02/23 FINDINGS: Lines and Tubes: None Lungs: No focal consolidation. Pleura: No effusion. No pneumothorax. Cardiomediastinal contours: Unremarkable Bones: No acute osseous abnormality. IMPRESSION: No acute cardiopulmonary disease.
[2024-11-17 09:38] LABS: Triglycerides 109 mg/dL (< 150)
[2024-11-17 09:41] LABS: Cholesterol 85 mg/dL (< 200)
[2024-11-17 09:52] LABS: HDL Cholesterol 33 mg/dL (40-59)
[2024-11-17 10:20] LABS: INR 1.02 (0.9-1.15); Partial Thromboplastin Time 26.5 SEC (24.5-34.5); Prothrombin Time 10.8 sec (9.3-11.8)
[2024-11-17] MEDS: PANTOPRAZOLE 40 MG TAB PO SCH (10:50)
[2024-11-17] MEDS: BENAZEPRIL HCL 10 MG TAB PO SCH (10:51)
[2024-11-17 13:03] LABS: Hepatitis B Surface Antigen Negative (Negative)
--- NOTE | 2024-11-17 15:12 | DVHPNRES ---
Progress Note Date Seen: Nov 17, 2024 Resident Creating Document: KATLYN CHARLES RESIDENT Medical Necessity Reason Pt with a Central, PICC or Fol: No Subjective Review of Systems 64-year-old male with past medical history of hypertension, hyperlipidemia, dementia, type 2 diabetes mellitus, multiple drug abuse and history of CVA in 2022 was brought to the ER with a 1 day history of altered level of consciousness. family reports that he was more confused than his baseline decided to call the ambulance. Patient is a poor historian with slow responses when questioned. He seems a bit confused. The patient was not [facility] 2 weeks ago due to similar presentation. PMH: Hypertension, CVA event in 2022, hyperlipidemia, type 2 diabetes mellitus PSH: None Family history: Patient is confused Social history: Patient lives with family and admits to smoking 1-2 cigarettes per day for many years, drinks alcohol sometimes and admits to drug use cocaine marijuana and methamphetamine smoking. ROS: Patient is confused, oriented to place and person but not time. He had an episode of chest pain and shortness of breaths, troponins were ordered and EKG was done that showed no changes. An echocardiography and a repeat EKG has been ordered and droop levels are pending. Cardiology has been consulted Objective vital signs Vital Sign Date Time Temp Pulse Resp B/P (MAP) Pulse Ox O2 Delivery O2 Flow Rate FiO2 11/17/24 14:00 97.6 61 18 129/92 (104) 96 97.6 11/17/24 07:52 Room Air* 0 21 medications Current Medications Medications Dose Ordered Sig/Markel Route Start Time Stop Time Status Last Admin Dose Admin Pantoprazole Sodium 40 mg DAILY PO 11/17/24 10:00 11/17/24 10:50 40 MG Atorvastatin Calcium 40 mg HS PO 11/17/24 22:00 Benazepril HCl 20 mg DAILY PO 11/17/24 10:00 11/17/24 10:51 20 MG Nifedipine 30 mg DAILY PO 11/17/24 10:00 11/17/24 10:50 30 MG Examination Pt is lying on bed General Appearance: Alert, Oriented X2, confused, Not in acute distress HEENT: Atraumatic, Mucous membranes moist/pink Respiratory: Clear to auscultation, Normal air movement, No added sounds Cardiovascular: Regular rate, Normal S1, Normal S2, No murmurs Abdominal: Active bowel sounds, Soft, no distention, no tenderness Extremities: No edema, Normal pulses, No tenderness/swelling Skin: No Significant rash, except past surgical scars Neuro: Normal speech, sensorimotor deficits none Psych/Mental Status: Mental status NL, Mood NL Nurse was there as hydraulic press in operator during examination laboratory and microbiology Laboratory Tests 11/17/24 04:20 Test 11/17/24 04:20 Range/Units Serum Glucose 91 74-106 mg/dL Labs and/or images reviewed: Labs reviewed by me, Image(s) reviewed by me Problem List/Assessment/Plan Problem List/Assessment/Plan #Acute Toxic And metabolic encephalopathy likely drug intox #Rule out CVA #Hx previous lacunar stroke IV fluids NS Head CT scan non contrast shows: Per MRI of 03/04/2023 possible infarct right posterior limb of the internal capsule in the thalamus. No acute intracranial hemorrhage. UDS- positive for cocaine UA- normal except for +4 glucose Ammonia levels 48 I #Chest pain, rule out ACS #r/o afib -Troponins initially less than 3 normal; repeat after chest pain pending -EKG -Echocardiography, pending -Cardiac consultation, pending #Essential Hypertension Benazepril 20 mg po daily Nifedipine 60 mg po daily #Diabetes Mellitus type 2 with hyperglycemia Hb A1c 6.1 Insulin Sliding scale #Hyperlipidemia Atorvastatin 40 mg po daily #Dementia, R/O vascular dementia Neurology consult #cocsine use dependence DVT prophylaxis: Lovenox 40 mg subcutaneously Diet: Cardiac Goals of care discussed with the patient for more than 27 minutes: Full code status Case discussed with Dr. Marquez, patient and nurse. Plan discussed with: Patient, Other (rn) My Orders My Orders Orders - KATLYN CHARLES RESIDENT Procedure Category Date Status Time Chest Xray 1 View XY 11/17/24 Resulted 08:54 Echo 2d Mode Cardiac US 11/17/24 Logged DOP 12:54 * Cardiology Consult CONS 11/17/24 Transmitted 12:54 Electrocardigram EKG 11/17/24 Logged 12:54 Communication Order ORDERS 11/17/24 Transmitted 13:44 Date of Service: Nov 17, 2024 Billing Provider: MERVIN MARQUEZ MD Common Visit Codes: [id number] INP/OBS CARE(HIGH) KATLYN CHARLES Nov 17, 2024 15:12 MANOLO GREER RESIDENT Nov 17, 2024 20:20 MERVIN MARQUEZ MD Nov 17, 2024 23:50
[2024-11-17 16:12] LABS: Amphetamine Screen, Urine Neg (NEGATIVE); Barbiturate Scree,Urine Neg (NEGATIVE); Benzodiazephine Screen, Urine Neg (NEGATIVE); Cannabinoid Screen, Urine Neg (NEGATIVE); Cocaine Screen, Urine Pos (NEGATIVE); Opiate Scree,Urine Neg (NEGATIVE); Phencyclidine Screen, Urine Neg (NEGATIVE)
[2024-11-17] MEDS ORDERED: DIVA-91 PO (16:45)
[2024-11-17] MEDS ORDERED: LOSA-533 PO (16:45)
[2024-11-17] MEDS ORDERED: METF-370 PO (16:45)
[2024-11-17] MEDS ORDERED: EMPA1TAB3 PO (16:45)
[2024-11-17] MEDS ORDERED: OLAN1TAB7 PO (16:45)
[2024-11-17] MEDS ORDERED: QUET50TA PO (16:45)
[2024-11-17] MEDS: ATORVASTATIN 20 MG TAB PO SCH (21:14)
[2024-11-17] MEDS: NICOTINE 21MG/24 HR TOPICAL PATCH TD ONE (21:21)
--- NOTE | 2024-11-17 22:30 | DVHINCON2 ---
Date of service: Nov 17, 2024 Referring Physician Ariel Reason for Consultation Acute chest pain History of Present Illness This is a 64-year-old male with a PMH of CVA, HTN, Hyperlipidemia, organic brain syndrome, Dementia, DM, and Methamphetamine/Tobacco/Alcohol Abuse who was brought in by EMS for altered level of consciousness. Patient is a very poor historian. ED staff was unable to understand with the he was saying, constantly mumbling. Patient does smell of alcohol at this time. TROP is negative. CT head showed per MRI of 03/04/2023 possible infarct right posterior limb of the internal capsule in the thalamus. No acute intracranial hemorrhage. Chest x-ray shows NAD. Patient was admitted to the hospital. I am asked to consult on this patient. Family History: Patient reports no known family medical history. Allergies: Coded Allergies: NO KNOWN ALLERGIES (Unverified , 09/19/10) Home Meds Reported Medications Divalproex Sodium (Depakote) 500 Mg Tab, 500 MG PO DAILY, TAB 11/17/24 Metformin Hydrochloride (Metformin Hcl) 500 Mg Tab, 1000 MG PO DAILY for 30 Days, MG 11/17/24 Quetiapine Fumerate (Seroquel) 50 Mg Tab, 100 MG PO DAILY@DINNER for 30 Days, MG 11/17/24 Losartan Potassium (Losartan Potassium) 25 Mg Tab, 25 MG PO DAILY for 30 Days, MG 11/17/24 Empagliflozin (Jardiance) 25 Mg Tab, 25 MG PO DAILY, TAB 11/17/24 Olanzapine (OLANZAPINE) 5 Mg Tab, 5 MG PO BID for 30 Days, MG 11/17/24 Metformin Hydrochloride (Metformin Hydrochloride) 500 Mg Tab, 1 TAB PO BID 03/02/23 Atorvastatin Calcium (ATORVASTATIN CALCIUM) 20 Mg Tab, 1 TAB PO DAILY 03/02/23 Benazepril Hcl (Benazepril Hcl) 20 Mg Tab, 1 TAB PO DAILY 03/02/23 Nifedipine (Nifedipine Er) 60 Mg Tab, 1 TAB PO DAILY 03/02/23 Current Medications Current Medications Medications (Trade) Dose Ordered Sig/Markel Route PRN Reason Start Time Stop Time Status Last Admin Pantoprazole Sodium (Protonix Tablet) 40 mg DAILY PO 11/17/24 10:00 11/17/24 10:50 Atorvastatin Calcium (Lipitor) 40 mg HS PO 11/17/24 22:00 Benazepril HCl (Lotensin Tablet) 20 mg DAILY PO 11/17/24 10:00 11/17/24 10:51 Nifedipine (Procardia Xl (Time-Release)) 30 mg BID PO 11/17/24 10:00 11/17/24 08:55 DC Nifedipine (Procardia Xl (Time-Release)) 30 mg DAILY PO 11/17/24 10:00 11/17/24 10:50 Enoxaparin Sodium (Lovenox) 40 mg DAILY SC 11/18/24 10:00 Nicotine (Nicoderm 21MG/ 24HR) 1 patch DAILY@1999 TD 11/18/24 20:00 Review of Systems Constitutional: No: Fever, Chills, Sweats, Weakness, Malaise, Other Eyes: No: Pain, Vision change, Conjunctivae inflammation, Eyelid inflammation, Other, Redness ENT: No: Ear pain, Ear discharge, Nose pain, Nose discharge, Nose congestion, Mouth pain, Mouth swelling, Throat pain, Throat swelling, Other Respiratory: No: Cough, Dry, Shortness of breath, SOB with excertion, Wheezing, Hemoptysis, Pleuritic Pain, Sputum, Wheezing, Other Cardiovascular: No: Chest Pain, Palpitations, Orthopnea, Paroxysmal Noc. Dyspnea, Edema, Lt Headedness, Other Gastrointestinal: No: Nausea, Vomiting, Abdominal Pain, Diarrhea, Constipation, Melena, Hematochezia, Other Genitourinary: No Dysuria, No Frequency, No Incontinence, No Hematuria, No Retention, No Other Musculoskeletal: No: other, neck pain, shoulder pain, arm pain, back pain, hand pain, leg pain, foot pain Skin: No: Rash, Lesions, Jaundice, Bruising, Other Neurological: Confusion, Other (Headaches. ); No: Weakness, Numbness, Incoordination, Change in speech, Seizures Vital Signs Vital Signs Date Time Temp Pulse Resp B/P (MAP) Pulse Ox O2 Delivery O2 Flow Rate FiO2 11/17/24 16:29 98.1 67 18 127/99 (108) 96 98.1 11/17/24 14:15 Room Air* 0 21 Physical Exam GENERAL: Altered. EYES: PERRL, EOMI. Anicteric. HENT: Moist mucous membranes. LUNGS: Clear to auscultation bilaterally. CARDIOVASCULAR: Regular rate and rhythm. ABDOMEN: Soft, nontender and nondistended. EXTREMITIES: No edema. SKIN: Warm, dry. Labs/Diagnostic Data Labs Test 11/17/24 09:39 11/17/24 04:20 11/17/24 02:32 11/16/24 19:45 Range/Units Prothrombin Time 10.8 9.3-11.8 sec Prothrombin Time INR 1.02 0.9-1.15 Activated Partial Thromboplast Time 26.5 24.5-34.5 SEC White Blood Count 9.1 4.4-10.8 10^3/uL Red Blood Count 4.99 4.5-5.90 10^6/uL Hemoglobin 16.8 13.5-17.5 g/dL Hematocrit 48.4 41.0-53.0 % Mean Corpuscular Volume 97.0 80.0-100.0 fL Mean Corpuscular Hemoglobin 33.6 H 28.0-32.0 pg Mean Corpuscular Hemoglobin Concent 34.6 32.0-36.0 g/dL Red Cell Distribution Width 14.2 11.8-14.3 % Platelet Count 220 140-450 10^3/uL Mean Platelet Volume 7.3 6.9-10.8 fL Neutrophils (%) (Auto) 54.2 37.0-80.0 % Lymphocytes (%) (Auto) 31.3 10.0-50.0 % Monocytes (%) (Auto) 11.0 0.0-12.0 % Eosinophils (%) (Auto) 3.0 0.0-7.0 % Basophils (%) (Auto) 0.5 0.0-2.0 % Neutrophils # (Auto) 5.0 1.6-8.6 10 ^3/uL Lymphocytes # (Auto) 2.9 0.4-5.4 10 ^3/uL Monocytes # (Auto) 1.0 0-1.3 10 ^3/uL Eosinophils # (Auto) 0.3 0-0.8 10 ^3/uL Basophils # (Auto) 0 0-0.2 10 ^3/uL Nucleated Red Blood Cells 0.0 % Sodium Level 141 136-145 mmol/L Potassium Level 3.7 3.5-5.1 mmol/L Chloride Level 109 H 98-107 mmol/L Carbon Dioxide Level 23 20-31 mmol/L Anion Gap 9 5-15 Blood Urea Nitrogen 13 9-23 mg/dL Creatinine 0.77 0.700-1.30 mg/dL Glomerular Filtration Rate Calc 101 >90 mL/min BUN/Creatinine Ratio 16.9 10.0-20.0 Serum Glucose 91 74-106 mg/dL Hemoglobin A1c 6.1 H <5.7 % A1C Calcium Level 8.5 L 8.7-10.4 mg/dL Creatine Kinase 84 46-171 U/L Troponin I High Sensitivity < 3 L </=54 ng/L B-Type Natriuretic Peptide 11.57 0-100 pg/mL Triglycerides Level 109 < 150 mg/dL Cholesterol Level 85 < 200 mg/dL LDL Cholesterol 39 < 100 mg/dL HDL Cholesterol 33 L 40-59 mg/dL Vitamin B12 Level 536 211-911 pg/mL Vitamin D 25-Hydroxy 56.0 30.0-100 ng/mL Thyroid Stimulating Hormone (TSH) 3.44 0.55-4.78 uIU/mL Hepatitis B Surface Antigen Negative Negative Hepatitis B Core IgM Antibody Negative Negative Hepatitis C Antibody Negative Negative HIV (1&2) Antibody Negative Negative POC Glucose 107 H 70-106 mg/dl Ammonia 48 H 11-32 umol/L Total Bilirubin 0.6 0.2-1.0 mg/dL Aspartate Amino Transferase (AST) 27 13-40 U/L Alanine Aminotransferase (ALT) 23 7-40 U/L Alkaline Phosphatase 75 46-116 U/L Total Protein 6.7 5.7-8.2 g/dL Albumin 4.2 3.2-4.8 g/dL Plasma/Serum Blood Alcohol < 3.0 <10 mg/dL Test 11/16/24 19:00 Range/Units Urine Color Yellow Yellow Urine Clarity Clear Clear Urine pH 5.0 5.0-9.0 Urine Specific [place] 1.043 H 1.001-1.035 Urine Protein Negative Negative Urine Ketones Trace Negative Urine Blood Negative Negative /uL Urine Nitrite Negative Negative Urine Bilirubin Negative Negative Urine Urobilinogen Normal Negative mg/dL Urine Leukocyte Esterase Negative Negative /uL Urine RBC 1 0 - 3 /hpf Urine Microscopic WBC < 1 0-3 /HPF Urine Squamous Epithelial Cells Few <5 /hpf Urine Bacteria None seen None Seen /hpf Urine Mucus Few None Seen Urine Glucose 4+ H Normal mg/dL Urine Opiates Screen Neg NEGATIVE Urine Fentanyl Screen Neg NEGATIVE Urine Barbiturates Screen Neg NEGATIVE Urine Phencyclidine Screen Neg NEGATIVE Urine Amphetamines Screen Neg NEGATIVE Urine Benzodiazepines Screen Neg NEGATIVE Urine Cocaine Screen Pos NEGATIVE Urine Cannabinoids Screen Neg NEGATIVE Assessment Toxic encephalopathy. History previous lacunar stroke. Essential hypertension. Diabetes mellitus type 2 with hyperglycemia. Hyperlipidemia. Dementia, R/O vascular dementia. Plan/Recommendation I agree with your ongoing assessment and care of plan. Echocardiogram. Lipitor. Lotensin, Nifedipine. DVT and GI prophylactics. Additional plan as per the hospital course. A total of 45 minutes was spent reviewing the patient record, examining the patient, making a diagnostic and therapeutic plan, discussing this plan with medical personnel, following up on diagnostic studies and following the patient for clinical stability excluding any and all procedures. At least 50% of this time was spent in direct, [id number] contact. Plan discussed with: Other SERGIO ALVARADO MD Nov 17, 2024 20:12
[2024-11-18 01:00] VITALS: BP 136/89; PULSE 62; RESP 17; TEMP 97.4; O2SAT 98
--- NOTE | 2024-11-18 01:30 | DVHSR ---
APPROVED REPORT EXAM: Two-dimensional and M-mode echocardiogram with Doppler and color Doppler. Blood Pressure: 122/88 mmHg INDICATION Chest Pain RISK FACTORS Height: 5' 9", Weight: 165 DIMENSIONS LVDd4.6 (3.8-5.7cm)LA (2D)3.5 (1.9-4.0cm)Aortic Root3.3 (2.0-3.7cm) LVDs3.2 (2.5-4.0cm)LA (MM) (1.9-4.0cm)Aortic Cusp Exc1.9 (1.5-2.0cm) EF (%) 57.0 (55-70%)Rt. Atrium3.9 (1.9-4.0cm)Asc. Aorta cm IVSd0.9 (0.7-1.1cm)RV (D) (1.8-2.4cm) PWd1.0 (0.7-1.1cm) Mitral Valve MitralMitral Stenosis E wave1.00m/sMV Mean GR.mmHg A wave1.10m/sMV Peak GR.mmHg E/A ratio0.92D MVAcm2 Aortic Valve Aortic ValveAortic Stenosis V10.90m/Vivian Mean GR.5mmHg V21.50m/Vivian Peak GR.9mmHg LVOT Diameter2.2 (1.8-2.4cm)Doppler AVA2.28cm2 Pulmonic Valve V20.60m/s Conclusion LV EF IS 66% AND IS NORMAL GROSSLY NORMAL VALVES MITRAL ANNULAR CALCIFICATION NORMAL RV FUNCTION NO EFFUSION
[2024-11-18 05:00] VITALS: BP 133/82; PULSE 64; RESP 18; TEMP 97.4; O2SAT 94
[2024-11-18 07:59] LABS: Potassium 4.1 mmol/L (3.5-5.1); Sodium 139 mmol/L (136-145)
[2024-11-18 08:00] VITALS: PULSE 70; PULSE 81; RESP 18; O2SAT 96
[2024-11-18 08:00] LABS: Anion Gap 9 (5-15); Calcium 9.3 mg/dL (8.7-10.4); Carbon Dioxide 22 mmol/L (20-31)
[2024-11-18 08:05] LABS: BUN/Creatinine Ratio 10.5 (10.0-20.0)
[2024-11-18 08:06] LABS: Blood Urea Nitrogen 8 mg/dL (9-23); Chloride 108 mmol/L (98-107); Glucose 119 mg/dL (74-106)
[2024-11-18 08:30] LABS: Hematocrit 52.1 % (41.0-53.0); Hemoglobin 17.7 g/dL (13.5-17.5); Mean Corpuscular Hemoglobin 32.6 pg (28.0-32.0); Mean Corpuscular Volume 95.8 fL (80.0-100.0); Nucleated Red Blood Cells % 0.1 %
[2024-11-18 08:45] VITALS: BP 113/81; PULSE 52; RESP 18; TEMP 97.3; O2SAT 95
[2024-11-18] MEDS: ENOXAPARIN SOD 40 MG/0.4 ML SYRINGE SC SCH (09:00)
[2024-11-18 13:00] VITALS: BP 121/59; PULSE 63; RESP 17; TEMP 96.8; O2SAT 94
--- NOTE | 2024-11-18 16:35 | DVHDSRES ---
Discharge Summary Date of Admission Resident Creating Document: KATLYN CHARLES RESIDENT Nov 17, 2024 at 01:56 Date of Discharge: Nov 18, 2024 Admitting Diagnosis Acute toxic and metabolic encephalopathy likely drug intoxication Labs/Diagnostic Data: Laboratory Results Test 11/18/24 07:08 11/17/24 09:39 11/17/24 04:20 11/17/24 02:32 White Blood Count 8.5 10^3/uL (4.4-10.8) Red Blood Count 5.43 10^6/uL (4.5-5.90) Hemoglobin 17.7 g/dL (13.5-17.5) Hematocrit 52.1 % (41.0-53.0) Mean Corpuscular Volume 95.8 fL (80.0-100.0) Mean Corpuscular Hemoglobin 32.6 pg (28.0-32.0) Mean Corpuscular Hemoglobin Concent 34.1 g/dL (32.0-36.0) Red Cell Distribution Width 13.5 % (11.8-14.3) Platelet Count 252 10^3/uL (140-450) Mean Platelet Volume 7.7 fL (6.9-10.8) Neutrophils (%) (Auto) 56.2 % (37.0-80.0) Lymphocytes (%) (Auto) 30.2 % (10.0-50.0) Monocytes (%) (Auto) 10.2 % (0.0-12.0) Eosinophils (%) (Auto) 2.9 % (0.0-7.0) Basophils (%) (Auto) 0.5 % (0.0-2.0) Neutrophils # (Auto) 4.8 10 ^3/uL (1.6-8.6) Lymphocytes # (Auto) 2.6 10 ^3/uL (0.4-5.4) Monocytes # (Auto) 0.9 10 ^3/uL (0-1.3) Eosinophils # (Auto) 0.2 10 ^3/uL (0-0.8) Basophils # (Auto) 0 10 ^3/uL (0-0.2) Nucleated Red Blood Cells 0.1 % Sodium Level 139 mmol/L (136-145) Potassium Level 4.1 mmol/L (3.5-5.1) Chloride Level 108 mmol/L (98-107) Carbon Dioxide Level 22 mmol/L (20-31) Anion Gap 9 (5-15) Blood Urea Nitrogen 8 mg/dL (9-23) Creatinine 0.76 mg/dL (0.700-1.30) Glomerular Filtration Rate Calc 101 mL/min (>90) BUN/Creatinine Ratio 10.5 (10.0-20.0) Serum Glucose 119 mg/dL (74-106) Calcium Level 9.3 mg/dL (8.7-10.4) Prothrombin Time 10.8 sec (9.3-11.8) Prothrombin Time INR 1.02 (0.9-1.15) Activated Partial Thromboplast Time 26.5 SEC (24.5-34.5) Hemoglobin A1c 6.1 % A1C (<5.7) Creatine Kinase 84 U/L (46-171) Troponin I High Sensitivity < 3 ng/L (</=54) B-Type Natriuretic Peptide 11.57 pg/mL (0-100) Triglycerides Level 109 mg/dL (< 150) Cholesterol Level 85 mg/dL (< 200) LDL Cholesterol 39 mg/dL (< 100) HDL Cholesterol 33 mg/dL (40-59) Vitamin B12 Level 536 pg/mL (211-911) Vitamin D 25-Hydroxy 56.0 ng/mL (30.0-100) Thyroid Stimulating Hormone (TSH) 3.44 uIU/mL (0.55-4.78) Hepatitis B Surface Antigen Negative (Negative) Hepatitis B Core IgM Antibody Negative (Negative) Hepatitis C Antibody Negative (Negative) HIV (1&2) Antibody Negative (Negative) POC Glucose 107 mg/dl (70-106) Ammonia 48 umol/L (11-32) Test 11/16/24 19:45 11/16/24 19:00 Total Bilirubin 0.6 mg/dL (0.2-1.0) Aspartate Amino Transferase (AST) 27 U/L (13-40) Alanine Aminotransferase (ALT) 23 U/L (7-40) Alkaline Phosphatase 75 U/L (46-116) Total Protein 6.7 g/dL (5.7-8.2) Albumin 4.2 g/dL (3.2-4.8) Plasma/Serum Blood Alcohol < 3.0 mg/dL (<10) Urine Color Yellow (Yellow) Urine Clarity Clear (Clear) Urine pH 5.0 (5.0-9.0) Urine Specific [place] 1.043 (1.001-1.035) Urine Protein Negative (Negative) Urine Ketones Trace (Negative) Urine Blood Negative /uL (Negative) Urine Nitrite Negative (Negative) Urine Bilirubin Negative (Negative) Urine Urobilinogen Normal mg/dL (Negative) Urine Leukocyte Esterase Negative /uL (Negative) Urine RBC 1 /hpf (0 - 3) Urine Microscopic WBC < 1 /HPF (0-3) Urine Squamous Epithelial Cells Few /hpf (<5) Urine Bacteria None seen /hpf (None Seen) Urine Mucus Few (None Seen) Urine Glucose 4+ mg/dL (Normal) Urine Opiates Screen Neg (NEGATIVE) Urine Fentanyl Screen Neg (NEGATIVE) Urine Barbiturates Screen Neg (NEGATIVE) Urine Phencyclidine Screen Neg (NEGATIVE) Urine Amphetamines Screen Neg (NEGATIVE) Urine Benzodiazepines Screen Neg (NEGATIVE) Urine Cocaine Screen Pos (NEGATIVE) Urine Cannabinoids Screen Neg (NEGATIVE) Other Laboratory Tests 11/18/24 07:08 Brief Hx & Hospital Course: 64-year-old male with past medical history of hypertension, hyperlipidemia, dementia, type 2 diabetes mellitus, multiple drug abuse and history of CVA in 2022 was brought to the ER with a 1 day history of altered level of consciousness. family reports that he was more confused than his baseline decided to call the ambulance. Patient is a poor historian with slow responses when questioned. He seems a bit confused. The patient was not EVH 2 weeks ago due to similar presentation. PMH: Hypertension, CVA event in 2022, hyperlipidemia, type 2 diabetes mellitus PSH: None Family history: Patient is confused Social history: Patient lives with family and admits to smoking 1-2 cigarettes per day for many years, drinks alcohol sometimes and admits to drug use cocaine marijuana and methamphetamine smoking. BRIEF HISTORY OF HOSPITALIZATION: Patient came in a confused state, with a history of previous lacunar stroke. We did a CT scan with noncontrast which showed no acute changes other than previous infarct right posterior limb of internal capsule in the thalamus. Urine drug screen came back positive for cocaine and urine analysis showed normal results except for +4 glucose. Patient's ammonia level was 48. We started the patient on IV fluids. He had acute toxic and metabolic encephalopathy likely drug intoxication. For patient's essential hypertension we ave the patient Lotensin, nifedipine per orally daily and for hyperlipidemia we continued atorvastatin. We also started the patient on Protonix for GI prophylaxis and Lovenox subcutaneously Daily for DVT prophylaxis. During the course of hospitalization patient also complained of chest pain and we ruled out ACS. Troponins initially on admission was less than 3 and repeated after chest pain. Repeat troponins also came back less than 3. we repeated the EKG twice which were both normal and echocardiogram was done as well. Echo showed left ventricular ejection fraction of 66%, mitral annular calcification. A Cardiology consult was done and the agreed with ongoing care that was given to the patient. For patient's diabetes mellitus type 2 with hyperglycemia we checked his HbA1c levels which was 6.1 for which we started mild insulin sliding scale. patient also has cocaine dependence drug screen and we have counseled him regarding cessation as well as side effects of the drug. Patient verbalized understanding and says he will try to stop them. He reports feeling better and is now stable for discharge. Patient has communicated understanding and has agreed to the discharge plan. Pt is lying on bed General Appearance: Alert, Oriented X2, confused, Not in acute distress HEENT: Atraumatic, Mucous membranes moist/pink Respiratory: Clear to auscultation, Normal air movement, No added sounds Cardiovascular: Regular rate, Normal S1, Normal S2, No murmurs Abdominal: Active bowel sounds, Soft, no distention, no tenderness Extremities: No edema, Normal pulses, No tenderness/swelling Skin: No Significant rash, except past surgical scars Neuro: Normal speech, sensorimotor deficits none Psych/Mental Status: Mental status NL, Mood NL Nurse was there as international marketing manager during examination Operations or Procedures EXAM: XY CHEST XRAY 1 VIEW Indication: pain; r/o congestion IMPRESSION: No acute cardiopulmonary disease. EXAM: CT HEAD WITHOUT CONTRAST INDICATION: Altered mental status IMPRESSION: 1. Per MRI of 03/04/2023 possible infarct right posterior limb of the internal capsule in the thalamus. 2. No acute intracranial hemorrhage. EXAM: Two-dimensional and M-mode echocardiogram with Doppler and color Doppler. Blood Pressure: 122/88 mmHg INDICATION Chest Pain RISK FACTORS Height: 5' 9", Weight: 165 DIMENSIONS LVDd 4.6 (3.8-5.7cm) LA (2D) 3.5 (1.9-4.0cm) Aortic Root 3.3 (2.0- 3.7cm) LVDs 3.2 (2.5-4.0cm) LA (MM) (1.9-4.0cm) Aortic Cusp Exc 1.9 (1.5- 2.0cm) EF (%) 57.0 (55-70%) Rt. Atrium 3.9 (1.9-4.0cm) Asc. Aorta cm IVSd 0.9 (0.7-1.1cm) RV (D) (1.8-2.4cm) PWd 1.0 (0.7-1.1cm) Mitral Valve Mitral Mitral Stenosis E wave 1.00m/s MV Mean GR. mmHg A wave 1.10m/s MV Peak GR. mmHg E/A ratio 0.9 2D MVA cm2 Aortic Valve Aortic Valve Aortic Stenosis V1 0.90m/s AO Mean GR. 5mmHg V2 1.50m/s AO Peak GR. 9mmHg LVOT Diameter 2.2 (1.8-2.4cm) Doppler ANTONIETTA 2.28cm2 Pulmonic Valve V2 0.60m/s Conclusion LV EF IS 66% AND IS NORMAL GROSSLY NORMAL VALVES MITRAL ANNULAR CALCIFICATION NORMAL RV FUNCTION NO EFFUSION SIGNED BY: SERGIO ALVARADO MD SIGNED DATE/TIME: 11/18/24 0130 Condition at Discharge: Stable Final Diagnosis/Problems List #Acute Toxic And metabolic encephalopathy likely drug intoxication #Ruled out CVA #Hx previous lacunar stroke #Chest pain, ruled out ACS, likely due to drug intoxication #Ruled out afib #Essential Hypertension #Diabetes Mellitus type 2 with hyperglycemia #Hyperlipidemia #Dementia, likely vascular dementia #cocaine use dependence Discharge Disposition: Home Discharge Instruct/Medications Diet: Consistent carbohydrate, Cardiac 2g Na,low cholest Activity: No Restrictions, As Tolerated Follow Up/Referral: With primary care physician in 10 days Follow up at discharge clinic within 7 days Medications: Resume home medication Take ibuprofen 1 tablet for chest pain as needed Scheduled Atorvastatin Calcium (Atorvastatin Calcium), 1 TAB PO DAILY, (Reported) Benazepril Hcl (Benazepril Hcl), 1 TAB PO DAILY, (Reported) Divalproex Sodium (Depakote), 500 MG PO DAILY, (Reported) Empagliflozin (Jardiance), 25 MG PO DAILY, (Reported) Losartan Potassium (Losartan Potassium), 25 MG PO DAILY, (Reported) Metformin Hydrochloride (Metformin Hydrochloride), 1 TAB PO BID, (Reported) Metformin Hydrochloride (Metformin Hcl), 1,000 MG PO DAILY, (Reported) Nifedipine (Nifedipine Er), 1 TAB PO DAILY, (Reported) Olanzapine (Olanzapine), 5 MG PO BID, (Reported) Quetiapine Fumerate (Seroquel), 100 MG PO DAILY@DINNER, (Reported) Discharge Statement: "Patient was advised to return to the ER or call 911 if any headaches, dizziness, shortness of breath, chest pain, abdominal pain, bleeding, fevers, or worsening of medical condition. Patient was counseled about treatment plan, medications, possible side effects, patientverbalized understanding. All questions were answered to the best of my ability. This discharge took greater then 30 minutes in planning, reviewing documentation, counseling the patient, and discussing with other team members." ASSESSMENT ASSESSMENT Assessment Acute toxic and metabolic encephalopathy likely drug intoxication Date of Service: Nov 18, 2024 Billing Provider: MERVNI MONTERO MD Common Visit Codes: 33216-QOJ/OBS DISCH DAY >30min KATLYN CHARLES Nov 18, 2024 16:35 MERVIN MONTERO MD Nov 19, 2024 08:57
[2024-11-18] MEDS ORDERED: NICOTINE 21MG/24 HR TOPICAL PATCH TD SCH (20:00)
--- NOTE | 2024-11-18 22:57 | DVHPN2 ---
Progress Note - Dictate Date Seen: Nov 18, 2024 Medical Necessity Reason Pt with a Central, PICC or Fol: No Subjective Patient was seen and evaluated in follow up. No overnight events. Patient denies any further chest pain. Echocardiogram showed an EF of 65%. Telemetry reviewed. vital signs Vital Sign Date Time Temp Pulse Resp B/P (MAP) Pulse Ox O2 Delivery O2 Flow Rate FiO2 11/18/24 13:00 96.8 63 17 121/59 (79) 94 96.8 11/18/24 08:00 Room Air* 0 21 Total Intake and Output 11/17/24 11/17/24 11/18/24 15:00 23:00 07:00 Intake Total 120 ml 650 ml Output Total 200 ml 950 ml Balance -80 ml -300 ml medications Current Medications Medications Dose Ordered Sig/Markel Route Start Time Stop Time Status Last Admin Dose Admin Pantoprazole Sodium 40 mg DAILY PO 11/17/24 10:00 11/18/24 08:59 40 MG Atorvastatin Calcium 40 mg HS PO 11/17/24 22:00 11/17/24 21:14 40 MG Benazepril HCl 20 mg DAILY PO 11/17/24 10:00 11/18/24 08:59 20 MG Nifedipine 30 mg DAILY PO 11/17/24 10:00 11/18/24 08:59 30 MG Enoxaparin Sodium 40 mg DAILY SC 11/18/24 10:00 11/18/24 09:00 40 MG Nicotine 1 patch DAILY@1999 TD 11/18/24 20:00 objective GENERAL: Altered. EYES: PERRL, EOMI. Anicteric. HENT: Moist mucous membranes. LUNGS: Clear to auscultation bilaterally. CARDIOVASCULAR: Regular rate and rhythm. ABDOMEN: Soft, nontender and nondistended. EXTREMITIES: No edema. SKIN: Warm, dry. laboratory and microbiology Laboratory Tests 11/18/24 07:08 Test 11/18/24 07:08 Range/Units Serum Glucose 119 H 74-106 mg/dL Problem List Toxic encephalopathy. History previous lacunar stroke. Essential hypertension. Diabetes mellitus type 2 with hyperglycemia. Hyperlipidemia. Dementia, R/O vascular dementia. Assessment/Plan Continued all current supportive medical care. Lotensin, Nifedipine. DVT and GI prophylactics. Additional plan as per the hospital course. Plan discussed with: Patient SERGIO ALVARADO MD Nov 18, 2024 13:59
--- NOTE | 2024-11-20 07:52 | ECG ---
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
== END 2024-11-18 18:50 | disposition home or self-care (01) | DRG 816 ==
LOC: EDUNIT# 18:59 → ER 18:59 → EDBD 18:59 → OVERFLOW 11-17 01:56 → TELE-WESTW 11-17 13:54
PROVIDERS: ATTEND Emergency Medicine
DX: T40.5X1A Poisoning by cocaine, accidental (unintentional), initial encounter (principal); G92.8 Other toxic encephalopathy; F01.50 Vascular dementia, unspecified severity, without behavioral disturbance, psychotic disturbance, mood disturbance, and anxiety; E11.65 Type 2 diabetes mellitus with hyperglycemia; E78.5 Hyperlipidemia, unspecified; R07.89 Other chest pain; I10 Essential (primary) hypertension; F17.210 Nicotine dependence, cigarettes, uncomplicated; F14.20 Cocaine dependence, uncomplicated; J44.9 Chronic obstructive pulmonary disease, unspecified; Z86.73 Personal history of transient ischemic attack (TIA), and cerebral infarction without residual deficits; Y92.89 Other specified places as the place of occurrence of the external cause
CPT/HCPCS: 36415; 70450; 71045; 80048; 80053; 80061; 80307; 80320; 81001; 82140; 82306; 82550; 82607; 82962; 83036; 83880; 84443; 84484; 85025; 85610; 85730; 86703; 86705; 86803; 87340; 93005; 93306; 96360; G0378

== ENCOUNTER 2024-12-16 22:07 | Emergency (ER) | payer MEDICAID ==
[~2024-12-16] VITALS: Ht 182.9 cm; Wt 75.0 kg
[~2024-12-16 22:07] MED LIST changes: +DIVA-91 PO; +EMPA1TAB3 PO; +LOSA-533 PO; +METF-370 PO; +OLAN1TAB7 PO; +QUET50TA PO
--- NOTE | 2024-12-16 22:20 | ED.PDOC ---
HPI Comments This is a 64 year-old male with a Hx of COPD, DM, HTN, Dementia, and CVA, who presents to the ED via EMS with a chief complaint of chest pain S/P mechanical fall 30 minutes prior to arrival. Patient reports landing onto his chest. Patient is a poor historian. Patient has no further complaints at this time and otherwise denies LOC, cough, SOB, abdominal pain, N/V/D, fever, or chills. Vital signs were stable. Chief Complaint: Chest Pain Time Seen by MD: 22:11 Primary Care Provider: Unknown Reviewed Notes: Nurses Notes, Scheduling Assistant Notes, Medications, Allergies Allergies: Coded Allergies: NO KNOWN ALLERGIES (Unverified , 09/19/10) Home Meds Reported Medications Divalproex Sodium (Depakote) 500 Mg Tab, 500 MG PO DAILY, TAB 11/17/24 Metformin Hydrochloride (Metformin Hcl) 500 Mg Tab, 1000 MG PO DAILY for 30 Days, MG 11/17/24 Quetiapine Fumerate (Seroquel) 50 Mg Tab, 100 MG PO DAILY@DINNER for 30 Days, MG 11/17/24 Losartan Potassium (Losartan Potassium) 25 Mg Tab, 25 MG PO DAILY for 30 Days, MG 11/17/24 Empagliflozin (Jardiance) 25 Mg Tab, 25 MG PO DAILY, TAB 11/17/24 Olanzapine (OLANZAPINE) 5 Mg Tab, 5 MG PO BID for 30 Days, MG 11/17/24 Metformin Hydrochloride (Metformin Hydrochloride) 500 Mg Tab, 1 TAB PO BID 03/02/23 Atorvastatin Calcium (ATORVASTATIN CALCIUM) 20 Mg Tab, 1 TAB PO DAILY 03/02/23 Benazepril Hcl (Benazepril Hcl) 20 Mg Tab, 1 TAB PO DAILY 03/02/23 Nifedipine (Nifedipine Er) 60 Mg Tab, 1 TAB PO DAILY 03/02/23 Information Source: Patient, Emergency Med Personnel Mode of Arrival: EMS Severity: Moderate Timing: Minutes Duration: Since onset Radiation: No Radiation Onset: At Rest, With Light Exertion, With Heavy Exertion Associated Signs and Symptoms: Other (Chest Pain ) Past Medical History PAST MEDICAL HISTORY: COPD, CVA, Dementia, DM, HTN Surgical History: Pt Confused Family History Family History: Pt Confused Social History Smoker: Pt Confused Alcohol: Heavy Drugs: Methamphetamine Lives In: Pt Confused Constitutional: denies: chills, diaphoresis, fatigue, fever, malaise, sweats, weakness, others EENTM: denies: blurred vision, double vision, ear bleeding, ear discharge, ear drainage, ear pain, ear ringing, eye pain, eye redness, hearing loss, mouth pain, mouth swelling, nasal discharge, nose bleeding, nose congestion, nose pain, photophobia, tearing, throat pain, throat swelling, voice changes, others Respiratory: denies: cough, hemoptysis, orthopnea, SOB at rest, shortness of breath, SOB with excertion, stridor, wheezing, others Cardiovascular: reports: chest pain (Musculoskeletal); denies: dizzy spells, diaphoresis, Dyspnea on exertion, edema, irregular heart beat, left arm pain, lightheadedness, palpitations, PND, syncope, others Gastrointestinal: denies: abdomen distended, abdominal pain, blood streaked bowels, constipated, diarrhea, dysphagia, difficulty swallowing, hematemesis, melena, nausea, poor appetite, poor fluid intake, rectal bleeding, rectal pain, vomiting, others Genitourinary: denies: burning, dysuria, flank pain, frequency, hematuria, incontinence, penile discharge, penile sore, pain, testicle pain, testicle swelling, urgency, others Neurological: denies: dizziness, fainting, headache, left sided numbness, left sided weakness, numbness, paresthesia, pre-existing deficit, right sided numbness, right sided weakness, seizure, speech problems, tingling, tremors, weakness, others Musculoskeletal: denies: back pain, gout, joint pain, joint swelling, muscle pain, muscle stiffness, neck pain, others Integumetry: denies: bruises, change in color, change in hair/nails, dryness, laceration, lesions, lumps, rash, wounds, others Allergic/Immunocompromised: denies: Difficulty Healing, Frequent Infections, Hives, Itching, others Hematologic/Lymphatic: denies: anemia, blood clots, easy bleeding, easy bruising, swollen glands, others Endocrine: denies: excessive hunger, excessive sweating, excessive thirst, excessive urination, flushing, intolerance to cold, intolerance to heat, unexplained weight gain, unexplained weight loss, others Psychiatric: denies: anxiety, bipolar disorder, depression, hopeless, panic disorder, schizophrenia, sleepless, suicidal, others All Other Systems: Reviewed and Negative Physical Exam General Appearance: Moderate Distress (Moderate distress due to left-sided venkata st pain concerns.), Normal HEENT: Normal ENT Inspection, Pharynx Normal, TMs Normal Neck: Full Range of Motion, Non-Tender, Normal, Normal Inspection Respiratory: Other (Diffuse left-sided chest pain tenderness to palpation throughout. No crepitus appreciated. No definitive signs of trauma.) Cardiovascular: No Edema, No JVD, No Murmur, No Gallop, Normal Peripheral Pulses, Regular Rate/Rhythm Breast Exam: Deferred Gastrointestinal: No Organomegaly, Non Tender, No Pulsatile Mass, Normal Bowel Sounds, Soft Genitalia: Deferred Pelvic: Deferred Rectal: Deferred Extremities: No calf tenderness, Normal capillary refill, Normal inspection, Normal range of motion, Non-tender, No pedal edema Neurologic: Alert Cerebellar Function: NOT DONE Reflexes: NOT DONE Skin: Dry, Normal Color, Warm Lymphatic: No Adenopathy Was a procedure done? Was a procedure done?: No CP Differential Dx Differential Diagnosis: N/A Differential Diagnosis: Chest Wall Pain, Other (Rib fracture) X-Ray, Labs, Meds, VS Vital Signs Date Time Temp Pulse Resp B/P (MAP) Pulse Ox O2 Delivery O2 Flow Rate FiO2 12/16/24 22:47 93 Room Air* 0 21 12/16/24 22:45 98.0 111 13 137/89 (105) 93 98.0 12/16/24 22:16 98.8 98 15 127/80 98 98.8 X-Ray, Labs, Meds, VS Comment All studies performed the ED were evaluated by me personally. Imaging studies were unremarkable for any acute fractures. Patient appears to have sustained a chest wall contusion. Advised pain medication as needed as well as ice therapy. Images Reviewed?: Images reviewed and evaluated by me Time of 1ST Reevaluation: 01:26 Reevaluation 1ST: Improved Consultation: PCP Patient Education/Counseling: Diagnosis, Treatment Family Education/Counseling: Diagnosis, Treatment, No Family Present Medical Screening: No EMC Exist At This Time SEPSIS Sepsis Screen Recent Procedure: No On Antibiotic Therapy: No Respiratory Rate >20: No Heart Rate >90: No Temp<36 C (96.8 F) or >38.3 C: No SBP <90 or MAP <65 mmHG: No New Acute Mental Status Change: No Is the patient on CPAP, BIPAP,: No Physician Orders Ribs Bilateral (12/16/24 22:17) Vital Signs Date Time Temp Pulse Resp B/P (MAP) Pulse Ox O2 Delivery O2 Flow Rate FiO2 12/16/24 22:47 93 Room Air* 0 21 12/16/24 22:45 98.0 111 13 137/89 (105) 93 98.0 12/16/24 22:16 98.8 98 15 127/80 98 98.8 Departure 1 Departure Time of Disposition: 01:27 Impression: Primary Impression: Chest wall contusion Disposition: HOME / SELF CARE / HOMELESS Condition: Stable Additional Instructions: Advised pain medication as needed as well as ice therapy. If symptoms continue, patient will need to follow up with the primary care provider for continued management. e-Prescriptions Hydrocodone-Acetaminophen (Hydrocodone Bitartrate/AC 5-325 mg) 1 Tab Tab 1 TAB PO Q6HP PRN, #10 TAB Prov: DARLENE BENSON PAC 12/17/24 Ibuprofen (Ibuprofen) 600 Mg Tab 1 TAB PO Q6HP PRN, #20 TAB Prov: DARLENE BENSON PAC 12/17/24 Discharged With: Self, Spouse Critical Care Note Critical Care Time?: No Stability Stability form required: No Heart Score Heart Score: Heart Score Response (Comments) Value History N/A 0 EKG N/A 0 Age N/A 0 Risk Factors N/A 0 Troponin N/A 0 Total 0 I personally scribed for DARLENE BENSON PAC ([email or web address]) on 12/16/24 at 22:20. Electronically submitted by Ada RenaeYooDeal). DARLENE BENSON PAC Dec 16, 2024 22:20
[2024-12-16] MEDS ORDERED: HYDROcodone-ACET 10/325MG TAB PO ONE (22:30)
[2024-12-16 22:45] VITALS: BP 137/89; PULSE 111; RESP 13; TEMP 98
[2024-12-16 22:47] VITALS: O2SAT 93
--- NOTE | 2024-12-16 23:35 | DVH ---
BILATERALRIBS RADIOGRAPHS CLINICAL HISTORY: Trauma/fall Chest pain. TECHNIQUE: AP and oblique views of the right and left ribs were obtained. Comparison: XY CHEST XRAY 1 VIEW on DOS: 11/17/24, XY CHEST XRAY 1 VIEW on DOS: 03/02/23, XR CHEST 1 V IEW on DOS: 03/17/20 FINDINGS/IMPRESSION: There is no evidence of an acute displaced rib fracture. The lungs are clear. There is no evidence o f a pneumothorax.
[2024-12-17] MEDS ORDERED: HYDR-4902 PO (01:28)
[2024-12-17] MEDS ORDERED: IBUP-1454 PO (01:28)
== END 2024-12-17 02:24 | disposition home or self-care (01) ==
LOC: EDBD 22:07 → ER 22:07
DX: S20.219A Contusion of unspecified front wall of thorax, initial encounter (principal); Z79.899 Other long term (current) drug therapy; X58.XXXA Exposure to other specified factors, initial encounter; Y93.89 Activity, other specified; Y92.89 Other specified places as the place of occurrence of the external cause; Y99.8 Other external cause status
CPT/HCPCS: 71111; 82947

== ENCOUNTER 2024-12-17 16:31 | Emergency (ER) | payer MEDICAID ==
[~2024-12-17] VITALS: Ht 182.9 cm; Wt 68.1 kg
[~2024-12-17 16:31] MED LIST changes: +HYDR-4902 PO; +IBUP-1454 PO
--- NOTE | 2024-12-17 16:41 | ECG ---
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
--- NOTE | 2024-12-17 16:54 | ED.PDOC ---
History of Present Illness HPI Comments This is a 64 year-old male with a Hx of COPD, DM, HTN, Dementia, and CVA, who presents to the ED via EMS with a chief complaint of chest pain S/P mechanical fall 30 minutes prior to arrival. Patient reports landing onto his chest. Patient is a poor historian. He left yesterday came back stating that he still has a at musculoskeletal pain. Patient has no further complaints at this time and otherwise denies LOC, cough, SOB, abdominal pain, N/V/D, fever, or chills. Vital signs were stable. Chief Complaint: Chest Wall Injury Time Seen by MD: 16:45 Primary Care Provider: Unknown Reviewed Notes: Nurses Notes, Medications, Allergies Allergies: Coded Allergies: NO KNOWN ALLERGIES (Unverified , 09/19/10) Home Meds Active Scripts Hydrocodone-Acetaminophen (Hydrocodone Bitartrate/AC 5-325 mg) 1 Tab Tab, 1 TAB PO Q6HP PRN, #10 TAB Prov:DARLENE BENSON PAC 12/17/24 Ibuprofen (Ibuprofen) 600 Mg Tab, 1 TAB PO Q6HP PRN, #20 TAB Prov:DARLENE BENSON PAC 12/17/24 Reported Medications Divalproex Sodium (Depakote) 500 Mg Tab, 500 MG PO DAILY, TAB 11/17/24 Metformin Hydrochloride (Metformin Hcl) 500 Mg Tab, 1000 MG PO DAILY for 30 Day s, MG 11/17/24 Quetiapine Fumerate (Seroquel) 50 Mg Tab, 100 MG PO DAILY@DINNER for 30 Days, MG 11/17/24 Losartan Potassium (Losartan Potassium) 25 Mg Tab, 25 MG PO DAILY for 30 Days, MG 11/17/24 Empagliflozin (Jardiance) 25 Mg Tab, 25 MG PO DAILY, TAB 11/17/24 Olanzapine (OLANZAPINE) 5 Mg Tab, 5 MG PO BID for 30 Days, MG 11/17/24 Metformin Hydrochloride (Metformin Hydrochloride) 500 Mg Tab, 1 TAB PO BID 03/02/23 Atorvastatin Calcium (ATORVASTATIN CALCIUM) 20 Mg Tab, 1 TAB PO DAILY 03/02/23 Benazepril Hcl (Benazepril Hcl) 20 Mg Tab, 1 TAB PO DAILY 03/02/23 Nifedipine (Nifedipine Er) 60 Mg Tab, 1 TAB PO DAILY 03/02/23 Information Source: Patient, Emergency Med Personnel Mode of Arrival: EMS Severity: Mild Timing: Days Duration: Since onset Past Medical History PAST MEDICAL HISTORY: COPD, CVA, Dementia, DM, HTN Surgical History: Pt Confused Family History Family History: Pt Confused Social History Smoker: Pt Confused Alcohol: Heavy Drugs: Methamphetamine Lives In: Pt Confused Constitutional: denies: chills, diaphoresis, fatigue, fever, malaise, sweats, weakness, others EENTM: denies: blurred vision, double vision, ear bleeding, ear discharge, ear drainage, ear pain, ear ringing, eye pain, eye redness, hearing loss, mouth pain, mouth swelling, nasal discharge, nose bleeding, nose congestion, nose pain, photophobia, tearing, throat pain, throat swelling, voice changes, others Respiratory: denies: cough, hemoptysis, orthopnea, SOB at rest, shortness of breath, SOB with excertion, stridor, wheezing, others Cardiovascular: denies: chest pain, dizzy spells, diaphoresis, Dyspnea on exertion, edema, irregular heart beat, left arm pain, lightheadedness, palpitations, PND, syncope, others Gastrointestinal: denies: abdomen distended, abdominal pain, blood streaked bowels, constipated, diarrhea, dysphagia, difficulty swallowing, hematemesis, melena, nausea, poor appetite, poor fluid intake, rectal bleeding, rectal pain, vomiting, others Genitourinary: denies: burning, dysuria, flank pain, frequency, hematuria, incontinence, penile discharge, penile sore, pain, testicle pain, testicle swelling, urgency, others Neurological: denies: dizziness, fainting, headache, left sided numbness, left sided weakness, numbness, paresthesia, pre-existing deficit, right sided numbness, right sided weakness, seizure, speech problems, tingling, tremors, weakness, others Musculoskeletal: reports: muscle pain; denies: back pain, gout, joint pain, joint swelling, muscle stiffness, neck pain, others Integumetry: denies: bruises, change in color, change in hair/nails, dryness, laceration, lesions, lumps, rash, wounds, others Allergic/Immunocompromised: denies: Difficulty Healing, Frequent Infections, Hives, Itching, others Hematologic/Lymphatic: denies: anemia, blood clots, easy bleeding, easy bruising, swollen glands, others Endocrine: denies: excessive hunger, excessive sweating, excessive thirst, excessive urination, flushing, intolerance to cold, intolerance to heat, unexplained weight gain, unexplained weight loss, others Psychiatric: denies: anxiety, bipolar disorder, depression, hopeless, panic disorder, schizophrenia, sleepless, suicidal, others Physical Exam General Appearance: Moderate Distress HEENT: Normal ENT Inspection, Pharynx Normal, TMs Normal Neck: Full Range of Motion, Non-Tender, Normal, Normal Inspection Respiratory: Chest Non-Tender, Lungs Clear, No Accessory Muscle Use, No Respiratory Distress, Normal Breath Sounds Cardiovascular: No Edema, No JVD, No Murmur, No Gallop, Normal Peripheral Pulses, Regular Rate/Rhythm Breast Exam: Deferred Gastrointestinal: No Organomegaly, Non Tender, No Pulsatile Mass, Normal Bowel Sounds, Soft Genitalia: Deferred Pelvic: Deferred Rectal: Deferred Extremities: No calf tenderness, Normal capillary refill, Normal inspection, Normal range of motion, Non-tender, No pedal edema Musculoskeletal : Apperance: Normal Neurologic: Alert, medical donation professional II-XII nml as Tested, No Motor Deficits, Normal Affect, Normal Mood, No Sensory Deficits Cerebellar Function: Normal Reflexes: Normal Skin: Dry, Normal Color, Warm Peripheral Pulses: 3+ Radial (R), 3+ Radial (L) Lymphatic: No Adenopathy Was a procedure done? Was a procedure done?: No Differential Dx Considerations may include: Musculoskeletal pain Electrolyte imbalance X-Ray, Labs, Meds, VS Vital Signs Date Time Temp Pulse Resp B/P (MAP) Pulse Ox O2 Delivery O2 Flow Rate FiO2 12/17/24 16:33 98.7 82 15 133/71 98 98.7 Patient alert. No sign of distress. Vitals stable. Answering questions. Saturation pristine on room air. Ambulating without difficulty. EKG reviewed does not show any acute changes. Reviewed his previous visit. Explained to the patient. Was told to follow up with his primary care physician. Was told to come back if there is any problem. Time of 1ST Reevaluation: 16:53 Reevaluation 1ST: Improved Patient Education/Counseling: Diagnosis, Treatment, Prognosis, Need For Follow Up Family Education/Counseling: No Family Present SEPSIS Sepsis Screen Date sepsis recognized/suspect: Dec 17, 2024 Time Sepsis recognized/suspect: 1633 Recent Procedure: No On Antibiotic Therapy: No Respiratory Rate >20: No Heart Rate >90: No Temp<36 C (96.8 F) or >38.3 C: No SBP <90 or MAP <65 mmHG: No New Acute Mental Status Change: No Is the patient on CPAP, BIPAP,: No Physician Orders Electrocardigram (12/17/24 17:38) Electrocardigram (12/17/24 19:38) Troponin-I Hs (12/17/24 16:38) Troponin-I Hs (12/17/24 17:38) Troponin-I Hs (12/17/24 19:38) Vital Signs Date Time Temp Pulse Resp B/P (MAP) Pulse Ox O2 Delivery O2 Flow Rate FiO2 12/17/24 16:33 98.7 82 15 133/71 98 98.7 Departure 1 Departure Time of Disposition: 16:54 Impression: Primary Impression: Musculoskeletal pain Disposition: 01 HOME / SELF CARE / HOMELESS Condition: Good Discharged With: Self Critical Care Note Critical Care Time?: No Stability Stability form required: No Heart Score Heart Score: Heart Score Response (Comments) Value History Slightly Suspicious 0 EKG Normal 0 Age 45-64 1 Risk Factors >3 or Hx ASHD 2 Troponin Normal limit 0 Total 3 JOY CASTILLO MD Dec 17, 2024 16:54
--- NOTE | 2024-12-17 17:23 | ECG ---
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
[2024-12-17 18:18] VITALS: BP 136/74; PULSE 82; RESP 16; TEMP 98.2; O2SAT 98
--- NOTE | 2024-12-17 18:37 | DVH ---
CHEST RADIOGRAPH Indication: sob Technique: Single frontal view of the chest was obtained COMPARISON: XY CHEST XRAY 1 VIEW on DOS: 11/17/24, XY CHEST XRAY 1 VIEW on DOS: 03/02/23, XR CHEST 1 V IEW on DOS: 03/17/20 FINDINGS: Lines and Tubes: None Lungs: Increased interstitial prominence Pleura: No effusion. No pneumothorax. Cardiomediastinal contours: Unremarkable Bones: Unremarkable IMPRESSION: Increased interstital prominence. This may represent pulmonary vascular congestion and/or viral pneum onia. Clinical correlation advised.
== END 2024-12-17 18:20 | disposition home or self-care (01) ==
LOC: EDBD 16:31 → EDUNIT# 16:31 → ER 16:34
DX: R07.89 Other chest pain (principal); F10.90 Alcohol use, unspecified, uncomplicated; F19.90 Other psychoactive substance use, unspecified, uncomplicated; E11.9 Type 2 diabetes mellitus without complications; I10 Essential (primary) hypertension; J44.9 Chronic obstructive pulmonary disease, unspecified; F03.90 Unspecified dementia, unspecified severity, without behavioral disturbance, psychotic disturbance, mood disturbance, and anxiety; Z79.899 Other long term (current) drug therapy; W18.39XA Other fall on same level, initial encounter; Y93.89 Activity, other specified; Y92.89 Other specified places as the place of occurrence of the external cause; Y99.8 Other external cause status
CPT/HCPCS: 36415; 71045; 84484; 93005

== ENCOUNTER 2025-03-01 14:39 | Emergency (ER) | payer MEDICAID ==
[~2025-03-01] VITALS: Ht 175.3 cm; Wt 95.4 kg
[2025-03-01] MEDS ORDERED: IBUP-1456 PO (15:23)
--- NOTE | 2025-03-01 15:24 | ED.PDOC ---
Musculoskeletal HPI Comments A 64 YEAR OLD MALE PRESENTS TO THE ED WITH COMPLAINT OF LEFT INDEX FINGER. PATIENT STATES HE ACCIDENTALLY HIT HIS LEFT INDEX FINGER ON THE CAR EARLIER TODAY. PATIENT REPORTS HE IS NOW EXPERIENCING LEFT INDEX FINGER PAIN AND SWELLING. PATIENT DENIES FEVER, CHILLS, SHORTNESS OF BREATH, CHEST PAIN, ABDOMINAL PAIN, NAUSEA, VOMITING, HEADACHE, OR OTHER COMPLAINTS. NO OTHER SYMPTOMS OR MODIFYING FACTORS AT THIS TIME. PATIENT IS ALERT, ORIENTED X 4, AND HAS STEADY GAIT. Chief Complaint: Upper Extremity Time Seen by MD: 14:40 Primary Care Provider: Unknown Reviewed Notes: Nurses Notes, Medications, Allergies Allergies: Coded Allergies: NO KNOWN ALLERGIES (Unverified , 09/19/10) Home Meds Active Scripts Ibuprofen (Ibuprofen) 800 Mg Tab, 1 TAB PO TID, #30 TAB Prov:ERIC GAFFNEY PA 03/01/25 Hydrocodone-Acetaminophen (Hydrocodone Bitartrate/AC 5-325 mg) 1 Tab Tab, 1 TAB PO Q6HP PRN, #10 TAB Prov:DARLENE BENSON PAC 12/17/24 Ibuprofen (Ibuprofen) 600 Mg Tab, 1 TAB PO Q6HP PRN, #20 TAB Prov:DARLENE BENSON PAC 12/17/24 Reported Medications Divalproex Sodium (Depakote) 500 Mg Tab, 500 MG PO DAILY, TAB 11/17/24 Metformin Hydrochloride (Metformin Hcl) 500 Mg Tab, 1000 MG PO DAILY for 30 Days, MG 11/17/24 Quetiapine Fumerate (Seroquel) 50 Mg Tab, 100 MG PO DAILY@DINNER for 30 Days, MG 11/17/24 Losartan Potassium (Losartan Potassium) 25 Mg Tab, 25 MG PO DAILY for 30 Days, MG 11/17/24 Empagliflozin (Jardiance) 25 Mg Tab, 25 MG PO DAILY, TAB 11/17/24 Olanzapine (OLANZAPINE) 5 Mg Tab, 5 MG PO BID for 30 Days, MG 11/17/24 Metformin Hydrochloride (Metformin Hydrochloride) 500 Mg Tab, 1 TAB PO BID 03/02/23 Atorvastatin Calcium (ATORVASTATIN CALCIUM) 20 Mg Tab, 1 TAB PO DAILY 03/02/23 Benazepril Hcl (Benazepril Hcl) 20 Mg Tab, 1 TAB PO DAILY 03/02/23 Nifedipine (Nifedipine Er) 60 Mg Tab, 1 TAB PO DAILY 03/02/23 Information Source: Patient Mode of Arrival: Ambulatory Location: Left Extremity Location: Finger 2 Timing: Hours Prehospital treatment: None Severity: Moderate Able to Move Extremity: Yes Bear Weight: Fully Pain: Moderate Mechanism: Blunt Trauma Circumstances: Accident Onset of Symptoms: After Trauma Symptoms: Swelling, Pain DVT Risk Factors: NONE Last Tetanus: Unknown Associated signs and symptoms: None Past Medical History PAST MEDICAL HISTORY: COPD, CVA, Dementia, DM, HTN Surgical History: Denies all surgeries Family History Family History: Reviewed,noncontributory to illness Social History Smoker: Non-Smoker Alcohol: Heavy Drugs: Methamphetamine Lives In: Home Constitutional: denies: chills, diaphoresis, fatigue, fever, malaise, sweats, weakness, others EENTM: denies: blurred vision, double vision, ear bleeding, ear discharge, ear drainage, ear pain, ear ringing, eye pain, eye redness, hearing loss, mouth pain, mouth swelling, nasal discharge, nose bleeding, nose congestion, nose pain, photophobia, tearing, throat pain, throat swelling, voice changes, others Respiratory: denies: cough, hemoptysis, orthopnea, SOB at rest, shortness of breath, SOB with excertion, stridor, wheezing, others Cardiovascular: denies: chest pain, dizzy spells, diaphoresis, Dyspnea on exertion, edema, irregular heart beat, left arm pain, lightheadedness, palpitations, PND, syncope, others Gastrointestinal: denies: abdomen distended, abdominal pain, blood streaked bowels, constipated, diarrhea, dysphagia, difficulty swallowing, hematemesis, melena, nausea, poor appetite, poor fluid intake, rectal bleeding, rectal pain, vomiting, others Genitourinary: denies: burning, dysuria, flank pain, frequency, hematuria, incontinence, penile discharge, penile sore, pain, testicle pain, testicle swelling, urgency, others Neurological: denies: dizziness, fainting, headache, left sided numbness, left sided weakness, numbness, paresthesia, pre-existing deficit, right sided numbness, right sided weakness, seizure, speech problems, tingling, tremors, weakness, others Musculoskeletal: reports: joint pain, joint swelling, others (LEFT INDEX FINGER PAIN AND SWELLING); denies: back pain, gout, muscle pain, muscle stiffness, neck pain Integumetry: denies: bruises, change in color, change in hair/nails, dryness, laceration, lesions, lumps, rash, wounds, others Allergic/Immunocompromised: denies: Difficulty Healing, Frequent Infections, Hives, Itching, others Hematologic/Lymphatic: denies: anemia, blood clots, easy bleeding, easy bruising, swollen glands, others Endocrine: denies: excessive hunger, excessive sweating, excessive thirst, excessive urination, flushing, intolerance to cold, intolerance to heat, unexplained weight gain, unexplained weight loss, others Psychiatric: denies: anxiety, bipolar disorder, depression, hopeless, panic disorder, schizophrenia, sleepless, suicidal, others All Other Systems: Reviewed and Negative Physical Exam General Appearance: No Apparent Distress, Normal HEENT: Normal ENT Inspection, PERRL/EOMI, Pharynx Normal, TMs Normal Neck: Full Range of Motion, Non-Tender, Normal, Normal Inspection Respiratory: Chest Non-Tender, Lungs Clear, No Accessory Muscle Use, No Respiratory Distress, Normal Breath Sounds Cardiovascular: No Edema, No JVD, No Murmur, No Gallop, Normal Peripheral Pulses, Regular Rate/Rhythm Breast Exam: Deferred Gastrointestinal: No Organomegaly, Non Tender, No Pulsatile Mass, Normal Bowel Sounds, Soft Genitalia: Deferred Pelvic: Deferred Rectal: Deferred Extremities: Decreased range of motion, No calf tenderness, Normal capillary re fill, No pedal edema, Swelling (BONY TENDERNESS AND SWELLING ON LEFT INDEX FINGER, NO OPEN WOUND AND DEFORMITY. ), Tender (AND MILD SWELLING ON LEFT INDEX FINGER. ) Musculoskeletal : Apperance: Normal Neurologic: Alert, stewarding supervisor II-XII nml as Tested, No Motor Deficits, Normal Affect, Normal Mood, No Sensory Deficits Cerebellar Function: Normal Reflexes: Normal Skin: Dry, Normal Color, Warm Peripheral Pulses: 2+ carotid (R), 2+ carotid (L), 2+ Radial (R), 2+ Radial (L) Lymphatic: No Adenopathy Was a procedure done? Was a procedure done?: No Differential Diagnosis EXT Differential Diagnosis: Fracture, Sprain, Dislocation, Contusion, Strain, Bursitis X-Ray, Labs, Meds, VS Vital Signs Date Time Temp Pulse Resp B/P (MAP) Pulse Ox O2 Delivery O2 Flow Rate FiO2 03/01/25 15:35 70 19 98 Room Air 03/01/25 15:35 98.0 70 19 139/89 (106) 98 98.0 03/01/25 14:40 97.9 83 16 136/108 94 97.9 PATIENT: FRED BOLANOST: [id number]: [id number] : 1960 LOC: ER ROOM / BED: / AGE / SEX: 64 / M ADM STATUS: [facility] ER SERVICE [id number] ORDERING PHYSICIAN: ERIC GAFFNEY PROCEDURE(s): LHAN - L HAND 3V XRAY REASON: INJURY ORDER NUMBER(s): [id number], ACCESSION NUMBER(s): [id number] CLINICAL INDICATION: INJURY TECHNIQUE: XY L HAND 3V XRAY Comparison: None FINDINGS/IMPRESSION: : Moderately comminuted fracture of the mid to distal 2nd middle phalanx. Soft tissue swelling about the 2nd digit. Normal mineralization alignment. Joint spaces are preserved. No radiopaque foreign body. ATED BY: DINO BARNETT MD DICTATED DATE/TIME: 03/01/25 1600 SIGNED BY: DNIO BARNETT MD SIGNED DATE/TIME: 03/01/25 1600 CC: X-Ray, Labs, Meds, VS Comment EXTERNAL MEDICAL RECORDS REVIEWED: [NONE] INDEPENDENT HISTORIANS: [NONE] SOCIAL DETERMINANTS OF HEALTH: [NONE] LABS ORDERED: NONE REVIEWED AND INTERPRETED RESULTS: NONE IMAGING ORDERED: XR HAND LT: [INTERPRETED BY ME. FRACTURE OF MIDDLE PHALANX OF 2ND FINGER VISUALIZED. NO DISLOCATION SEEN. PENDING RADIOLOGY REVIEW.] TREATMENTS ORDERED: FROG SPLINT APPLIED TO LEFT INDEX FINGER. PROCEDURES PERFORMED: NONE CRITICAL CARE TIME: NONE I HAVE DISCUSSED THE PATIENT WITH THE ATTENDING PHYSICIAN DR. CASTILLO AND HE AGREES WITH THE PATIENT'S PLAN OF CARE AND DISPOSITION. BASED ON HISTORY OF PRESENT ILLNESS, AND PHYSICAL EXAM, PATIENT WILL BE DISCHARGED HOME. DISCUSSED PLAN FOR DISCHARGE HOME WITH RX [IBUPROFEN 800MG]. MEDICATION WARNINGS GIVEN. SHARED DECISION MAKING: DISCUSSED WITH PATIENT THAT THEIR WORKUP WAS NORMAL. PATIENT INSTRUCTED TO FOLLOW UP WITH PRIMARY CARE PROVIDER IN 1-2 DAYS FOR RE- EVALUATION OF SYMPTOMS. PATIENT VERBALIZES UNDERSTANDING TO RETURN TO ED FOR NEW OR WORSENING SYMPTOMS OR IF FOLLOW UP WITH PCP CANNOT BE OBTAINED. PATIENT FEELS COMFORTABLE GOING HOME AT THIS TIME. ALL QUESTIONS ADDRESSED AT TIME OF DISCHARGE. Images Reviewed?: Images reviewed and evaluated by me Time of 1ST Reevaluation: 16:00 Reevaluation 1ST: Improved Patient Education/Counseling: Diagnosis, Treatment, Need For Follow Up Family Education/Counseling: Diagnosis, Treatment, Need For Follow Up Medical Screening: No EMC Exist At This Time Departure 1 Departure Time of Disposition: 16:00 Impression: Primary Impression: Fracture of middle phalanx of left index finger Qualified Codes: S62.651A - Nondisplaced fracture of middle phalanx of left index finger, initial encounter for closed fracture Disposition: HOME / SELF CARE / HOMELESS Condition: Stable Additional Instructions: FOLLOW-UP WITH PCP IN 1 TO 2 DAYS. TAKE MEDICATIONS PRESCRIBED. RETURN TO ED FOR ANY NEW OR WORSENING SYMPTOMS. e-Prescriptions Ibuprofen (Ibuprofen) 800 Mg Tab 1 TAB PO TID, #30 TAB Prov: ERIC GAFFNEY 03/01/25 Discharged With: Self, Relative (Mother) Critical Care Note Critical Care Time?: No Stability Stability form required: No I personally scribed for ERIC GAFFNEY ([email or web address]) on 03/01/25 at 15:24. Electronically submitted by Uday Beaver ([email or web address]). ERIC GAFFNEY Mar 01, 2025 15:24
[2025-03-01 15:35] VITALS: BP 139/89; PULSE 70; RESP 19; TEMP 98; O2SAT 98
--- NOTE | 2025-03-01 16:03 | DVH ---
CLINICAL INDICATION: INJURY TECHNIQUE: XY L HAND 3V XRAY Comparison: None FINDINGS/IMPRESSION: : Moderately comminuted fracture of the mid to distal 2nd middle phalanx. Soft tissue swelling about the 2nd digit. Normal mineralization alignment. Joint spaces are preserved. No radiopaque foreign body.
== END 2025-03-01 15:37 | disposition home or self-care (01) ==
LOC: ER 14:39
DX: S62.651A Nondisplaced fracture of middle phalanx of left index finger, initial encounter for closed fracture (principal); I10 Essential (primary) hypertension; E11.9 Type 2 diabetes mellitus without complications; Z79.899 Other long term (current) drug therapy; Z86.73 Personal history of transient ischemic attack (TIA), and cerebral infarction without residual deficits; X58.XXXA Exposure to other specified factors, initial encounter; Y93.89 Activity, other specified; Y92.89 Other specified places as the place of occurrence of the external cause; Y99.8 Other external cause status
CPT/HCPCS: 29130; 73130